=== PATIENT | female | born 1950 | race Caucasian/White ===

== ENCOUNTER → 2016-04-12 | Outpatient (REF) | payer MEDICAID, MEDICARE ==
[~2016-04-12] MED LIST: /ESOM40CA PO; FLUO20CA8 PO; LANS30CA PO; LEVO50TA7 PO; PANT40TA2 PO; RANI15TA PO; VIACCHW PO; VITA-112 PO
[2016-04-12 12:21] LABS: FREE T4 1.11 NG/DL (0.76-1.46)
== END ==
LOC: M SFHCPLAZ 08:25
PROVIDERS: ATTEND Family Medicine
DX: E03.9 Hypothyroidism, unspecified (principal)
CPT/HCPCS: 36415; 84439; 84443; G0463

== ENCOUNTER → 2016-04-18 | Outpatient (CLI) | payer MEDICARE, MEDICAID ==
[2016-04-18 08:18] LABS: MEAN CORPUSCULAR HEMOGLOBIN 28.3 pg (27.0-33.0); MEAN CORPUSCULAR HGB CONC 32.1 g/dl (32.0-36.5); MEAN CORPUSCULAR VOLUME 88.1 fl (80.0-96.0); RED CELL DISTRIBUTION WIDTH 13.2 % (11.5-14.5)
--- NOTE | 2016-04-18 09:07 | REP ---
Chest two views HISTORY: Reflux Comparison: 02/25/2015 The lungs are clear. The heart is normal in size. The pulmonary vasculature is normal in appearance. The bony structure is intact. IMPRESSION: No acute disease. Signed by Gordon Vickers MD 04/18/2016 08:58 A
== END ==
LOC: M LAB 07:54
PROVIDERS: ATTEND Internal Medicine Gastroenterology
DX: K31.84 Gastroparesis (principal); K21.9 Gastro-esophageal reflux disease without esophagitis; R05 Cough

== ENCOUNTER → 2016-05-11 | Outpatient (CLI) | payer MEDICARE, MEDICAID ==
[~2016-05-11] VITALS: Ht 157.5 cm; Wt 59.0 kg
[~2016-05-11] MED LIST changes: +GABA-279 PO; +LEVO75TA4 PO; +LIDOCAINE 2% INJ 100 MG/5 ML SDV (FOR ANES.) As Ordered ONE; +NS 1,000 ML IV SCH; +PROPOFOL 500 MG/50 ML VIAL As Ordered ONE; +PYRI60TA2 PO
--- NOTE | 2016-05-11 10:26 | ROOR ---
Patient Name: Uma Brand Procedure Date: 05/11/2016 10:07 AM Date of : 1950 Age: 66 Room: [facility] Gender: Female Note Status: Finalized Procedure: Colonoscopy Indications: High risk colon cancer surveillance: Personal history of colonic polyps, High risk colon cancer surveillance: Personal history of adenoma (10 mm or greater in size), High risk colon cancer surveillance: Personal history of adenoma with villous component Providers: Riley VALDERRAMA MD Referring MD: Chelsea Valdovinos MD Requesting Provider: Medicines: Monitored Anesthesia Care Complications: No immediate complications. Procedure: Pre-Anesthesia Assessment: - The heart rate, respiratory rate, oxygen saturations, blood pressure, adequacy of pulmonary ventilation, and response to care were monitored throughout the procedure. The Colonoscope was introduced through the anus and advanced to the cecum, identified by appendiceal orifice and ileocecal valve. The colonoscopy was performed without difficulty. The patient tolerated the procedure well. The quality of the bowel preparation was good. Findings: The perianal and digital rectal examinations were normal. (Exam: Complete, Prep: Good or Excellent.) Multiple medium-mouthed diverticula were found in the sigmoid colon. The entire examined colon appeared normal on direct and retroflexion views. Impression: - Moderate diverticulosis in the sigmoid colon. - The entire examined colon is normal on direct and retroflexion views. - (No residual polyp is seen n the cecum) - No specimens collected. Recommendation: - Repeat colonoscopy in 3 years for surveillance based on personal history of previous adenomatous polyps. Riley Valderrama MD Riley VALDERRAMA MD 05/11/2016 10:25:46 AM This report has been signed electronically. Number of Addenda: 0 Note Initiated On: 05/11/2016 10:07 AM Estimated Blood Loss: Estimated blood loss: none.
[2016-05-11 10:45] VITALS: BP 118/80
== END | disposition home or self-care (01) ==
LOC: M OPP 07:48
PROVIDERS: ATTEND Internal Medicine Gastroenterology
DX: Z12.11 Encounter for screening for malignant neoplasm of colon (principal); K57.30 Diverticulosis of large intestine without perforation or abscess without bleeding; Z86.010 Personal history of colon polyps; E03.9 Hypothyroidism, unspecified; R12 Heartburn; M19.90 Unspecified osteoarthritis, unspecified site; M79.7 Fibromyalgia; F41.9 Anxiety disorder, unspecified; K21.9 Gastro-esophageal reflux disease without esophagitis; G70.00 Myasthenia gravis without (acute) exacerbation; M81.0 Age-related osteoporosis without current pathological fracture; Z78.0 Asymptomatic menopausal state; Z79.899 Other long term (current) drug therapy; Z80.42 Family history of malignant neoplasm of prostate; Z80.49 Family history of malignant neoplasm of other genital organs
CPT/HCPCS: 99156; G0105

== ENCOUNTER → 2016-05-24 | Outpatient (CLI) | payer MEDICARE, MEDICAID ==
[~2016-05-24] MED LIST changes: -LIDOCAINE 2% INJ 100 MG/5 ML SDV (FOR ANES.) As Ordered ONE; -NS 1,000 ML IV SCH; -PROPOFOL 500 MG/50 ML VIAL As Ordered ONE
== END ==
LOC: M LAB 07:40
PROVIDERS: ATTEND Family Medicine
DX: E03.9 Hypothyroidism, unspecified (principal)

== ENCOUNTER → 2016-05-28 | Outpatient (REF) | payer MEDICARE, MEDICAID ==
[2016-05-28 14:05] LABS: BASO % 0.3 % (0.0-1.0); EOS % 0.8 % (0.0-3.0); LARGE UNSTAINED CELL # 0.1 K/mm3 (0.0-0.4); LARGE UNSTAINED CELL % 2.6 % (0.0-4.0); LYMPH # 1.5 K/mm3 (1.5-4.5); LYMPH % 24.3 % (24.0-44.0); MEAN CORPUSCULAR HEMOGLOBIN 28.7 pg (27.0-33.0); MEAN CORPUSCULAR HGB CONC 32.5 g/dl (32.0-36.5); MEAN CORPUSCULAR VOLUME 88.2 fl (80.0-96.0); MONO # 0.4 K/mm3 (0.0-0.8); MONO % 6.4 % (0.0-5.0); NEUTROPHILS # 3.6 K/mm3 (1.8-7.7); NEUTROPHILS % 65.6 % (36.0-66.0); PLATELET COUNT, AUTOMATED 254 k/mm3 (150-450); RED CELL DISTRIBUTION WIDTH 12.9 % (11.5-14.5); WHITE BLOOD COUNT 5.5 K/mm3 (4.0-10.0)
[2016-05-28 14:24] LABS: ALBUMIN 3.8 GM/DL (3.2-5.2); ALBUMIN/GLOBULIN RATIO 1.27 (1.00-1.93); ALKALINE PHOSPHATASE 63 U/L (45-117); ALT/SGPT 17 U/L (12-78); ANION GAP 7 MEQ/L (8-16); AST/SGOT 17 U/L (15-37); BILIRUBIN,TOTAL 0.6 MG/DL (0.2-1.0); BLOOD UREA NITROGEN 23 MG/DL (7-18); CALCIUM LEVEL 9.1 MG/DL (8.8-10.2); CARBON DIOXIDE LEVEL 28 MEQ/L (21-32); CHLORIDE LEVEL 106 MEQ/L (98-107); CREATININE FOR GFR 0.73 MG/DL (0.55-1.02); GLOMERULAR FILTRATION RATE > 60.0 (>45); GLUCOSE, FASTING 64 MG/DL (80-110); SODIUM LEVEL 141 MEQ/L (136-145); TOTAL PROTEIN 6.8 GM/DL (6.4-8.2)
== END ==
LOC: M LABNEURO 12:49
PROVIDERS: ATTEND Psychiatry & Neurology Neurology
DX: G70.00 Myasthenia gravis without (acute) exacerbation (principal)

== ENCOUNTER → 2016-06-01 | Outpatient (CLI) | payer MEDICARE, MEDICAID ==
--- NOTE | 2016-06-06 10:58 | DEXA ---
AP SPINE L1 - L4 0.948 -2.0 0.1 LT FEMUR TOTAL 0.729 -2.2 -0.8 RT FEMUR TOTAL 0.754 -2.0 -0.6 TOTAL BODY TOTAL OTHER DUAL FEMUR FRAX* ASSESSMENT Risk factors: None. 10 year probability of fracture Major osteoporotic fracture 11.1 % Hip fracture 2.1 % COMMENTS: There is low bone density of the spine and hips. The density of the spine has increased 2.6% since the initial exam on 2012. The spine density has decreased 0.7% since the most recent exam on 03/11/2014. The density of the left hip has increased 1.4% since the initial exam on 2012. The density of the left hip has decreased 1.2% since the most recent exam on . The density of the right hip has increased 0.5% since the initial exam on 2012. The density of the right hip has decreased 2.1% since the most recent exam on . FOLLOW-UP: Recommendation for the next bone density exam: 2 years. ESTHER
== END ==
LOC: M WHC 09:20
PROVIDERS: ATTEND Nurse Practitioner Family
DX: M81.0 Age-related osteoporosis without current pathological fracture (principal)

== ENCOUNTER → 2016-07-19 | Outpatient (CLI) | payer OTHER, MEDICAID ==
--- NOTE | 2016-07-19 14:46 | REP ---
BILATERAL MAMMOGRAM: Bilateral mammography performed in the MLO and CC projections and compared to multiple prior exams most recent of which is 07/22/2015. Mild fibroglandular tissue bilaterally is unchanged. However, there maybe increasing clustered pleomorphic microcalcifications in the upper outer quadrant of the left breast. I would recommend magnification views to further evaluate. IMPRESSION: ACR 0 incomplete. There are tiny calcifications in the upper outer quadrant of the left breast. Recommend magnification views to further evaluate. BI-RADS/ACR category 0 mammogram, incomplete. Additional imaging and/or prior images are needed before a final assessment can be assigned. This mammogram was interpreted with the aid of an FDA-approved computer-aided detection system. The patient states she/he had a clinical breast exam in 07/2015. The patient letter being requested is M0.
== END ==
LOC: M WHC 12:57
PROVIDERS: ATTEND Family Medicine
DX: Z12.31 Encounter for screening mammogram for malignant neoplasm of breast (principal); R92.8 Other abnormal and inconclusive findings on diagnostic imaging of breast

== ENCOUNTER → 2016-07-25 | Outpatient (CLI) | payer OTHER, MEDICAID ==
--- NOTE | 2016-07-25 08:14 | REP ---
Clinical: Primary osteoarthritis. Technique: AP, lateral, bilateral oblique and sunrise views of the left knee. Findings: Mild medial joint space narrowing is appreciated along with subtle cortical irregularity and osteophyte formation involving the patella with posterior patellar sclerosis and patellofemoral joint space narrowing. No acute fracture dislocation. No obvious effusion. Impression: Mild arthritic degenerative changes primarily involving the patella. Signed by Cabrera Maldonado MD 07/25/2016 08:07 A
== END ==
LOC: M RAD 07:25
PROVIDERS: ATTEND Family Medicine
DX: M17.12 Unilateral primary osteoarthritis, left knee (principal)

== ENCOUNTER → 2016-07-25 | Outpatient (CLI) | payer OTHER, MEDICAID ==
[2016-07-25 08:07] LABS: MAGNESIUM LEVEL 2.3 MG/DL (1.8-2.4)
== END ==
LOC: M LAB 07:22
PROVIDERS: ATTEND Nurse Practitioner Family
DX: R05 Cough (principal); K31.84 Gastroparesis; E55.9 Vitamin D deficiency, unspecified

== ENCOUNTER → 2016-07-26 | Outpatient (CLI) | payer OTHER, MEDICAID ==
--- NOTE | 2016-07-26 11:51 | REP ---
DIGITAL DIAGNOSTIC UNILATERAL LEFT BREAST MAMMOGRAPHY WITH CAD: HISTORY: Screening mammography July 19, 2016 was BIRADS category 0 because of a grouping of tiny calcifications in the upper outer quadrant. Diagnostic imaging was recommended. Comparison is also made with multiple prior studies, the most recent of which is dated July 22, 2015 and the most remote of which is dated August 06, 2011. MAMMOGRAPHIC FINDINGS: Magnified focal spot compression CC, MLO and true ML views of the left breast are obtained today along with a laterally exaggerated magnified CC view. These demonstrate the calcifications in question, which are believed to be visible in retrospect on remote prior studies dating back at least as far as 2011. In addition, there are dispersed similar tiny punctate calcifications throughout the left breast seen on today's magnification views. This is felt to be benign pattern. IMPRESSION: BIRADS category 2 benign left breast mammography. Repeat screening mammography recommended bilaterally in 1 year. BI-RADS/ACR category 2 mammogram. Benign finding(s). Routine annual screening mammography (for women over age 40). This mammogram was interpreted with the aid of an FDA-approved computer-aided detection system. The patient states she/he had a clinical breast exam in July 2015. The patient letter being requested is M1. Signed by Ismael Roldan MD 07/26/2016 03:07 P
== END ==
LOC: M RAD 11:12
PROVIDERS: ATTEND Family Medicine
DX: R92.8 Other abnormal and inconclusive findings on diagnostic imaging of breast (principal)

== ENCOUNTER → 2016-08-22 | Outpatient (CLI) | payer OTHER, MEDICAID ==
[2016-08-22 08:28] LABS: ALBUMIN 3.3 GM/DL (3.2-5.2); ANION GAP 7 MEQ/L (8-16); BLOOD UREA NITROGEN 15 MG/DL (7-18); CARBON DIOXIDE LEVEL 29 MEQ/L (21-32); CHLORIDE LEVEL 108 MEQ/L (98-107); CREATININE FOR GFR 0.75 MG/DL (0.55-1.02); GLOMERULAR FILTRATION RATE > 60.0 (>45); GLUCOSE, FASTING 89 MG/DL (80-110); PHOSPHORUS LEVEL 3.5 MG/DL (2.5-4.9); POTASSIUM SERUM 3.7 MEQ/L (3.5-5.1); SODIUM LEVEL 144 MEQ/L (136-145)
== END ==
LOC: M LAB 07:20
PROVIDERS: ATTEND Family Medicine
DX: M81.0 Age-related osteoporosis without current pathological fracture (principal)

== ENCOUNTER 2016-08-31 07:11 | Outpatient (CLI) | payer OTHER, MEDICAID ==
[~2016-08-31] VITALS: Ht 157.5 cm; Wt 57.7 kg
[2016-08-31] MEDS ORDERED: ZOLEDRONIC ACID 5 MG in APPROPRIATE DILUENT 1 EA IV ONE (08:00)
== END 2016-08-31 08:15 | disposition home or self-care (01) ==
LOC: M INFU 07:11
PROVIDERS: ATTEND Family Medicine
DX: M81.0 Age-related osteoporosis without current pathological fracture (principal); Z78.0 Asymptomatic menopausal state; Z79.899 Other long term (current) drug therapy
CPT/HCPCS: 96365; J3489

== ENCOUNTER → 2017-01-23 | Outpatient (CLI) | payer OTHER, MEDICAID ==
--- NOTE | 2017-01-24 06:30 | REP ---
CHEST X-RAY: CLINICAL: Dyspnea and chest pain. TECHNIQUE: PA and lateral. COMPARISON: 04/18/2016. FINDINGS: Mediastinum and cardiac silhouette are normal. Lung hartman are clear. No consolidation, effusion or pneumothorax. Skeletal structures are intact. IMPRESSION: No acute cardiopulmonary process or focal consolidation. Signed by Cabrera Maldonado MD 01/25/2017 08:51 A
== END ==
LOC: M RAD 10:14
PROVIDERS: ATTEND Family Medicine
DX: R06.00 Dyspnea, unspecified (principal)

== ENCOUNTER → 2017-04-01 | Outpatient (REF) | payer OTHER, MEDICAID ==
[2017-04-01 14:35] LABS: BASO % 0.4 % (0.0-1.0); EOS # 0.1 10^3/uL (0.0-0.50); EOS % 1.6 % (0.0-3.0); HEMOGLOBIN 12.2 g/dl (12.0-16.0); IMMATURE GRANULOCYTE % 0.2 % (0-3.0); LYMPH # 1.4 10^3/uL (1.5-4.5); LYMPH % 30.3 % (24.0-44.0); MEAN CORPUSCULAR HEMOGLOBIN 30.8 pg (27.0-33.0); MEAN CORPUSCULAR VOLUME 93.4 fl (80.0-96.0); MONO # 0.4 10^3/uL (0.0-0.8); MONO % 9.7 % (0.0-5.0); NEUTROPHILS # 2.6 10^3/uL (1.8-7.7); NEUTROPHILS % 57.8 % (36.0-66.0); PLATELET COUNT, AUTOMATED 208 10^3/uL (150-450); RED BLOOD COUNT 3.96 10^6/uL (4.00-5.40); RED CELL DISTRIBUTION WIDTH 12.1 % (11.5-14.5); WHITE BLOOD COUNT 4.5 10^3/uL (4.0-10.0)
[2017-04-01 14:56] LABS: ERYTHROCYTE SEDIMENTATION RATE 6 mm/hr (0-30)
[2017-04-01 15:07] LABS: ALBUMIN 3.6 GM/DL (3.2-5.2); ALBUMIN/GLOBULIN RATIO 1.29 (1.00-1.93); ALKALINE PHOSPHATASE 62 U/L (45-117); ALT/SGPT 31 U/L (12-78); ANION GAP 8 MEQ/L (8-16); AST/SGOT 22 U/L (7-37); BILIRUBIN,TOTAL 0.2 MG/DL (0.2-1.0); BLOOD UREA NITROGEN 17 MG/DL (7-18); CARBON DIOXIDE LEVEL 29 MEQ/L (21-32); CHLORIDE LEVEL 105 MEQ/L (98-107); CREATININE FOR GFR 0.71 MG/DL (0.55-1.30); GLOMERULAR FILTRATION RATE > 60.0 (>45); GLUCOSE, FASTING 80 MG/DL (70-100); POTASSIUM SERUM 3.6 MEQ/L (3.5-5.1); RHEUMATOID FACTOR QUANT < 10.0 IU/ML (0-15.0); SODIUM LEVEL 142 MEQ/L (136-145); TOTAL PROTEIN 6.4 GM/DL (6.4-8.2)
== END ==
LOC: M LABNEURO 13:34
DX: G70.00 Myasthenia gravis without (acute) exacerbation (principal)
CPT/HCPCS: 80053

== ENCOUNTER → 2017-08-19 | Outpatient (CLI) | payer OTHER, MEDICAID | LOC: M WHC 13:05 | DX: Z12.31 Encounter for screening mammogram for malignant neoplasm of breast (principal) | CPT/HCPCS: 77067 ==

== ENCOUNTER → 2017-09-17 | Outpatient (CLI) | payer OTHER, MEDICAID ==
[2017-09-17 08:03] LABS: BASO % 0.2 % (0.0-1.0); EOS % 0.7 % (0.0-3.0); HEMATOCRIT 38.1 % (36.0-47.0); HEMOGLOBIN 12.7 g/dl (12.0-15.5); IMMATURE GRANULOCYTE % 0.4 % (0-3.0); LYMPH # 1.2 10^3/uL (1.5-4.5); LYMPH % 26.3 % (24.0-44.0); MEAN CORPUSCULAR HEMOGLOBIN 31.5 pg (27.0-33.0); MEAN CORPUSCULAR HGB CONC 33.3 g/dl (32.0-36.5); MEAN CORPUSCULAR VOLUME 94.5 fl (80.0-96.0); MONO # 0.4 10^3/uL (0.0-0.8); MONO % 8.8 % (0.0-5.0); NEUTROPHILS # 2.9 10^3/uL (1.8-7.7); NEUTROPHILS % 63.6 % (36.0-66.0); PLATELET COUNT, AUTOMATED 209 10^3/uL (150-450); RED BLOOD COUNT 4.03 10^6/uL (4.00-5.40); RED CELL DISTRIBUTION WIDTH 11.9 % (11.5-14.5); WHITE BLOOD COUNT 4.6 10^3/uL (4.0-10.0)
[2017-09-17 08:28] LABS: ALBUMIN 3.7 GM/DL (3.2-5.2); ALBUMIN/GLOBULIN RATIO 1.19 (1.00-1.93); ALKALINE PHOSPHATASE 63 U/L (45-117); ALT/SGPT 26 U/L (12-78); ANION GAP 9 MEQ/L (8-16); AST/SGOT 20 U/L (7-37); BILIRUBIN,TOTAL 0.5 MG/DL (0.2-1.0); BLOOD UREA NITROGEN 22 MG/DL (7-18); CALCIUM LEVEL 8.6 MG/DL (8.8-10.2); CARBON DIOXIDE LEVEL 30 MEQ/L (21-32); CHLORIDE LEVEL 104 MEQ/L (98-107); CREATININE FOR GFR 0.86 MG/DL (0.55-1.30); GLOMERULAR FILTRATION RATE > 60.0 (>45); GLUCOSE, FASTING 115 MG/DL (70-100); POTASSIUM SERUM 3.5 MEQ/L (3.5-5.1); SODIUM LEVEL 143 MEQ/L (136-145); TOTAL PROTEIN 6.8 GM/DL (6.4-8.2)
== END ==
LOC: M LAB 07:20
DX: G70.00 Myasthenia gravis without (acute) exacerbation (principal)
CPT/HCPCS: 80053

== ENCOUNTER → 2018-05-28 | Outpatient (CLI) | payer MEDICARE, MEDICAID ==
[~2018-05-28] MED LIST changes: -/ESOM40CA PO; +GABA-1171 PO; -GABA-279 PO; +NEXI1CAP3 PO; -PANT40TA2 PO; +PANT40TA3 PO
[2018-05-28 07:22] LABS: ALBUMIN 3.8 GM/DL (3.2-5.2); ALT/SGPT 25 U/L (12-78); BILIRUBIN,TOTAL 0.4 MG/DL (0.2-1.0); BLOOD UREA NITROGEN 24 MG/DL (7-18); CALCIUM LEVEL 8.7 MG/DL (8.8-10.2); CARBON DIOXIDE LEVEL 29 MEQ/L (21-32); CHLORIDE LEVEL 107 MEQ/L (98-107); CHOLESTEROL LEVEL 230 MG/DL (<200); CHOLESTEROL RISK RATIO 2.911 (<5); CREATININE FOR GFR 0.81 MG/DL (0.55-1.30); GLOMERULAR FILTRATION RATE > 60.0 (>45); GLUCOSE, FASTING 85 MG/DL (70-100); HDL CHOLESTEROL 79 MG/DL (>40); LDL CHOLESTEROL 128 MG/DL (<100); NON-HDL-C 151 MG/DL; SODIUM LEVEL 141 MEQ/L (136-145); TOTAL PROTEIN 6.7 GM/DL (6.4-8.2); TRIGLYCERIDES LEVEL 113 MG/DL (<150)
[2018-05-28 09:20] LABS: TOTAL 25(OH) VITAMIN D 50.5 NG/ML (30.0-100.0)
== END ==
LOC: M LAB 06:06
PROVIDERS: ATTEND Family Medicine
DX: Z13.220 Encounter for screening for lipoid disorders (principal); E03.9 Hypothyroidism, unspecified; M81.0 Age-related osteoporosis without current pathological fracture

== ENCOUNTER → 2018-06-16 | Outpatient (CLI) | payer MEDICARE, MEDICAID ==
--- NOTE | 2018-06-20 14:09 | DEXA ---
AP SPINE L1 - L4 0.910 -2.3 -0.7 LT FEMUR TOTAL 0.723 -2.3 -1.0 LT NECK 0.689 -2.5 -1.0 RT FEMUR TOTAL 0.732 -2.2 -0.9 RT NECK 0.693 -2.5 -0.9 TOTAL BODY TOTAL OTHER COMMENTS: There is low bone density of the spine and hips The decreased density of the spine does represent a significant change. The decreased density of the left hip does not represent a significant change. The decreased density of the right hip does represent a significant change. The density of the spine has decreased 1.5% since the initial exam on 03/06/2012. The spine density has decreased 4.0% since the most recent exam on 06/01/2016. The density of the left hip has increased 0.6% since the initial exam on 03/06/2012. The density of the left hip has decreased 0.8% since the most recent exam on 06/01/2016. The density of the right hip has decreased 2.4% since the initial exam on 03/06/2012. The density of the right hip has decreased 2.9% since the most recent exam on 06/01/2016. FOLLOW-UP: Recommendation for the next bone density exam: 2 years. ESTHER
== END ==
LOC: M WHC 14:23
PROVIDERS: ATTEND Family Medicine
DX: M81.0 Age-related osteoporosis without current pathological fracture (principal); M85.89 Other specified disorders of bone density and structure, multiple sites

== ENCOUNTER → 2018-07-07 | Outpatient (REF) | payer MEDICARE, MEDICAID | LOC: M SFHCPLAZ 14:29 | PROVIDERS: ATTEND Family Medicine | DX: M81.0 Age-related osteoporosis without current pathological fracture (principal) | CPT/HCPCS: 36415; 82330; G0463 ==

== ENCOUNTER → 2018-09-05 | Outpatient (CLI) | payer MEDICARE, MEDICAID ==
--- NOTE | 2018-09-05 13:58 | REPMRS ---
Patient History The patient states she has not had a clinical breast exam in over a year. Patient is postmenopausal. Family history of prostate cancer at age 58 in father, endometrial cancer at age 59 in mother. No Hormone Replacement Therapy 3D TOMOSYNTHESIS WAS PERFORMED. [facility] lifetime risk for breast cancer is 5.4%. Digital Woman Screen Mammo: September 05, 2018 - Exam #: [id number] Bilateral CC and MLO view(s) were taken. Technologist: Catherine Domingo, Technologist Prior study comparison: August 19, 2017, bilateral digital woman screen mammo performed at [facility]. July 26, 2016, left breast digital mammo diagnostic unilateral, performed at [facility]. FINDINGS: There are scattered fibroglandular densities. There has been no change in the appearance of the mammogram from the prior studies. There is a mild amount of residual fibroglandular tissue which is fairly symmetric. There is no interval development of dominant mass, architectural distortion, or clustered microcalcification suggestive of malignancy. Assessment: BI-RADS/ACR category 1 mammogram. Negative Mammogram. Recommendation Routine screening mammogram in 1 year (for women over age 40). This mammogram was interpreted with the aid of an FDA-approved computer-aided dectection system. Electronically Signed By: Natan Vail MD 09/05/18 [id number]
== END ==
LOC: M WHC 12:53
PROVIDERS: ATTEND Family Medicine
DX: Z12.31 Encounter for screening mammogram for malignant neoplasm of breast (principal); Z78.0 Asymptomatic menopausal state; Z80.49 Family history of malignant neoplasm of other genital organs

== ENCOUNTER → 2018-09-16 | Outpatient (REF) | payer MEDICARE, MEDICAID ==
[2018-09-24 00:07] LABS: ACETYLCHOLINE RCPTOR BINDING A < 0.03 nmol/L (0.00-0.24); STRIATIONAL ANTIBODIES Negative (Neg:<1:40)
== END ==
LOC: M LABNEURO 14:10
PROVIDERS: ATTEND Psychiatry & Neurology Neurology
DX: G70.00 Myasthenia gravis without (acute) exacerbation (principal)

== ENCOUNTER → 2018-12-24 | Outpatient (CLI) | payer MEDICARE, MEDICAID ==
[2018-12-24 06:44] LABS: BASO % 0.4 % (0.0-1.0); EOS # 0.1 10^3/uL (0.0-0.5); EOS % 1.5 % (0.0-3.0); HEMATOCRIT 41.9 % (36.0-47.0); HEMOGLOBIN 13.9 g/dl (12.0-15.5); LYMPH # 1.9 10^3/uL (1.5-5.0); LYMPH % 34.4 % (24.0-44.0); MEAN CORPUSCULAR HEMOGLOBIN 31.8 pg (27.0-33.0); MEAN CORPUSCULAR HGB CONC 33.2 g/dl (32.0-36.5); MEAN CORPUSCULAR VOLUME 95.9 fl (80.0-96.0); MONO # 0.5 10^3/uL (0.0-0.8); NEUTROPHILS # 2.9 10^3/uL (1.5-8.5); NEUTROPHILS % 53.5 % (36.0-66.0); PLATELET COUNT, AUTOMATED 218 10^3/uL (150-450); RED BLOOD COUNT 4.37 10^6/uL (4.00-5.40); WHITE BLOOD COUNT 5.4 10^3/uL (4.0-10.0)
[2018-12-24 07:22] LABS: FREE T4 1.03 NG/DL (0.76-1.46); THYROID STIMULATING HORMONE 2.65 uIU/ML (0.358-3.740)
== END ==
LOC: M LAB 06:15
PROVIDERS: ATTEND Family Medicine
DX: E03.9 Hypothyroidism, unspecified (principal); R23.2 Flushing

== ENCOUNTER → 2019-02-04 | Outpatient (REF) | payer MEDICARE, MEDICAID ==
[~2019-02-04] MED LIST changes: +FLUO20CA20 PO; -FLUO20CA8 PO
== END ==
LOC: M SFHCPLAZ 12:57
PROVIDERS: ATTEND Family Medicine
DX: Z12.4 Encounter for screening for malignant neoplasm of cervix (principal); N95.2 Postmenopausal atrophic vaginitis
CPT/HCPCS: 87624; G0123

== ENCOUNTER → 2019-08-03 | Outpatient (REF) | payer MEDICARE, MEDICAID ==
[~2019-08-03] MED LIST changes: +D31000TA2 PO; +DICY10CA13 PO; +LEVO50TA5 PO; +MACR100C43 PO; +MULTCAP PO; +OMEP-218 PO; +OMEP40CA97 PO; +PANT40TA29 PO; -PANT40TA3 PO; +VIAC1CHW PO
[2019-08-03 13:38] LABS: COLOR, URINE MANUAL YELLOW (YELLOW)
[2019-08-03 13:39] LABS: BILIRUBIN, URINE MANUAL NEGATIVE (NEGATIVE); BLOOD URINE MANUAL NEGATIVE (NEGATIVE); GLUCOSE, URINE (UA) MANUAL NEGATIVE (NEGATIVE); KETONE, URINE MANUAL NEGATIVE (NEGATIVE); LEUKOCYTE ESTERASE, URINE MAN NEGATIVE (NEGATIVE); NITRITE, URINE MANUAL NEGATIVE (NEGATIVE); PROTEIN, URINE MANUAL NEGATIVE (NEGATIVE); UROBILINOGEN, URINE MANUAL NORMAL (NORMAL)
[2019-08-03 13:53] LABS: BASO % 0.5 % (0.0-1.0); EOS % 0.7 % (0.0-3.0); HEMATOCRIT 41.4 % (36.0-47.0); HEMOGLOBIN 13.5 g/dl (12.0-15.5); LYMPH # 1.5 10^3/uL (1.5-5.0); LYMPH % 35.7 % (24.0-44.0); MEAN CORPUSCULAR HEMOGLOBIN 31.2 pg (27.0-33.0); MEAN CORPUSCULAR HGB CONC 32.6 g/dl (32.0-36.5); MEAN CORPUSCULAR VOLUME 95.6 fl (80.0-96.0); MONO # 0.4 10^3/uL (0.0-0.8); MONO % 10.8 % (0.0-5.0); NEUTROPHILS # 2.1 10^3/uL (1.5-8.5); NEUTROPHILS % 52.1 % (36.0-66.0); PLATELET COUNT, AUTOMATED 179 10^3/uL (150-450); RED BLOOD COUNT 4.33 10^6/uL (4.00-5.40); WHITE BLOOD COUNT 4.1 10^3/uL (4.0-10.0)
[2019-08-03 14:23] LABS: ALBUMIN 3.7 GM/DL (3.2-5.2); ALT/SGPT 27 U/L (12-78); BILIRUBIN,TOTAL 0.6 MG/DL (0.2-1.0); BLOOD UREA NITROGEN 15 MG/DL (7-18); C REACTIVE PROTEIN QUANTITATIV < 0.30 MG/DL (0.00-0.30); CALCIUM LEVEL 9.2 MG/DL (8.8-10.2); CARBON DIOXIDE LEVEL 28 MEQ/L (21-32); CHLORIDE LEVEL 107 MEQ/L (98-107); CREATININE FOR GFR 0.69 MG/DL (0.55-1.30); GLOMERULAR FILTRATION RATE > 60.0 (>45); GLUCOSE, FASTING 85 MG/DL (70-100); POTASSIUM SERUM 4.1 MEQ/L (3.5-5.1); SODIUM LEVEL 140 MEQ/L (136-145); THYROID STIMULATING HORMONE 0.028 uIU/ML (0.358-3.740); TOTAL PROTEIN 6.6 GM/DL (6.4-8.2)
[2019-08-03 14:29] LABS: HEMOGLOBIN A1c 5.3 %
[2019-08-03 14:37] LABS: ERYTHROCYTE SEDIMENTATION RATE 6 mm/hr (0-30)
== END ==
LOC: M SFHCPLAZ 10:17
PROVIDERS: ATTEND Family Medicine
DX: R63.4 Abnormal weight loss (principal); E03.9 Hypothyroidism, unspecified; Z79.899 Other long term (current) drug therapy
CPT/HCPCS: 36415; 80053; 81002; 83036; 84443; 85025; 85652; 86140; G0463

== ENCOUNTER → 2019-08-06 | Outpatient (CLI) | payer MEDICARE, MEDICAID ==
--- NOTE | 2019-08-06 10:20 | REP ---
INTRACRANIAL MRA: 08/06/2019 TECHNIQUE: 3D [id number] imaging of the intracranial vessels were performed. COMPARISON: 12/05/2017 FINDINGS: 2-3 mm proximal right M1 segment aneurysm is re-demonstrated and stable. Right PCOM infundibulum versus small aneurysm is also stable. There are no new aneurysms intracranially. There is no intracranial high-grade stenosis or vessel occlusion. There is no intracranial AVM detected. IMPRESSION: Stable proximal right M1 segment aneurysm. Stable right PCOM aneurysm versus infundibulum. Electronically Signed by Luis E Godfrey DO 08/07/2019 08:41 A
== END ==
LOC: M RAD 06:31
PROVIDERS: ATTEND Student in an Organized Health Care Education/Training Program
DX: I67.1 Cerebral aneurysm, nonruptured (principal)

== ENCOUNTER → 2019-09-14 | Outpatient (CLI) | payer MEDICARE, MEDICAID ==
[~2019-09-14] MED LIST changes: -DICY10CA13 PO; -MACR100C43 PO; -OMEP40CA97 PO
--- NOTE | 2019-10-08 14:23 | REPMRS ---
Patient History The patient states she has not had a clinical breast exam in over a year. Patient is postmenopausal. Family history of prostate cancer at age 58 in father, endometrial cancer at age 59 in mother. No Hormone Replacement Therapy Digital Woman Screen Mammo: September 14, 2019 - Exam #: [id number] Bilateral CC and MLO view(s) were taken. Technologist: Carmelina Canales, Technologist Prior study comparison: September 05, 2018, bilateral digital woman screen mammo performed at [facility]. August 19, 2017, bilateral digital woman screen mammo performed at [facility]. July 19, 2016, digital woman screen mammo performed at [facility]. FINDINGS: The breast tissue is heterogeneously dense. This may lower the sensitivity of mammography. The Volpara volumetric breast density category is: C. There is a moderate amount of heterogeneously dense fibroglandular tissue which is fairly symmetric. There is no interval development of dominant mass, architectural distortion, or grouped microcalcification typical of malignancy. There has been no change in the appearance of the mammogram from the prior studies. 3-D tomosynthesis shows no additional findings. Assessment: BI-RADS/ACR category 1 mammogram. Negative Mammogram. Recommendation Routine screening mammogram of both breasts in 1 year (for women over age 40). This patient's Lifetime Breast Cancer RIsk is estimated at 5.1 %. This mammogram was interpreted with the aid of an FDA-approved computer-aided dectection system. Electronically Signed By: Jass Roldan MD 10/08/19 [id number]
== END ==
LOC: M WHC 14:27
PROVIDERS: ATTEND Family Medicine
DX: Z12.31 Encounter for screening mammogram for malignant neoplasm of breast (principal); Z78.0 Asymptomatic menopausal state; Z80.49 Family history of malignant neoplasm of other genital organs

== ENCOUNTER → 2019-10-03 | Outpatient (CLI) | payer MEDICARE, MEDICAID ==
[2019-11-26 16:21] LABS: FREE T4 0.86 NG/DL (0.76-1.46); THYROID STIMULATING HORMONE 3.37 uIU/ML (0.358-3.740)
== END ==
LOC: M LAB 13:59
PROVIDERS: ATTEND Family Medicine
DX: E03.9 Hypothyroidism, unspecified (principal)

== ENCOUNTER 2019-10-28 10:10 | Inpatient (IN) | payer MEDICARE, MEDICAID ==
[~2019-10-28] VITALS: Ht 157.5 cm; Wt 45.9 kg
[~2019-10-28 10:10] MED LIST changes: -D31000TA2 PO; -LEVO50TA5 PO; -MULTCAP PO; -OMEP-218 PO; -VIAC1CHW PO
[2019-10-28] MEDS ORDERED: OMEP-218 PO (10:17)
[2019-10-28] MEDS ORDERED: ONDANSETRON 4MG/2ML VIAL IV ONE (11:15)
[2019-10-28] MEDS ORDERED: NS 1,000 ML IV ONE (11:15)
[2019-10-28] MEDS ORDERED: KETOROLAC 30 MG/ML 1ML VIAL IV ONE (11:15)
[2019-10-28 11:51] LABS: BASO % 0.2 % (0.0-1.0); HEMOGLOBIN 13.9 g/dl (12.0-15.5); LYMPH # 1.3 10^3/uL (1.5-5.0); LYMPH % 31.3 % (24.0-44.0); MEAN CORPUSCULAR HEMOGLOBIN 31.6 pg (27.0-33.0); MEAN CORPUSCULAR HGB CONC 33.1 g/dl (32.0-36.5); MEAN CORPUSCULAR VOLUME 95.5 fl (80.0-96.0); MONO # 0.4 10^3/uL (0.0-0.8); MONO % 9.1 % (0.0-5.0); NEUTROPHILS # 2.4 10^3/uL (1.5-8.5); NEUTROPHILS % 58.2 % (36.0-66.0); PLATELET COUNT, AUTOMATED 185 10^3/uL (150-450); WHITE BLOOD COUNT 4.2 10^3/uL (4.0-10.0)
[2019-10-28] MEDS ORDERED: GASTROGRAFIN SOLUTION 30ML (Q9963) As Ordered ONE (12:16)
[2019-10-28 12:21] LABS: ALBUMIN 3.7 GM/DL (3.2-5.2); ALT/SGPT 36 U/L (12-78); BILIRUBIN,DIRECT 0.2 MG/DL (0.0-0.2); BILIRUBIN,TOTAL 0.5 MG/DL (0.2-1.0); CK-MB VALUE MASS 1.5 NG/ML (<3.6); CPK CREATINE PHOSPHOKINASE 109 U/L (26-192); LIPASE 113 U/L (73-393); MB/CK RELATIVE INDEX 1.38 (< OR =4); TOTAL PROTEIN 6.3 GM/DL (6.4-8.2); TROPONIN I < 0.02 NG/ML (< 0.10)
[2019-10-28] MEDS: GASTROGRAFIN SOLUTION 30ML PO SCH ×2 (12:54→13:25)
[2019-10-28] MEDS ORDERED: ISOVUE-370 76% 100ML VIAL As Ordered ONE (14:58)
--- NOTE | 2019-10-28 15:59 | REPVR ---
PROCEDURE INFORMATION: Exam: CT Abdomen And Pelvis With Contrast Exam date and time: 10/28/2019 3:30 PM Age: 69 years old Clinical indication: Nausea and other: Diarrhea, loss of appetite; Abdominal pain; Generalized; Additional info: Abd pain with n/d/loss of appetite TECHNIQUE: Imaging protocol: Computed tomography of the abdomen and pelvis with intravenous contrast. Radiation optimization: All CT scans at this facility use at least one of these dose optimization techniques: automated exposure control; mA and/or kV adjustment per patient size (includes targeted exams where dose is matched to clinical indication); or iterative reconstruction. Contrast material: ISOVUE 370; Contrast volume: 100 ml; Contrast route: INTRAVENOUS (IV); COMPARISON: PELVIS NON-OB COMPLETE US 09/30/2014 9:18 AM FINDINGS: Lungs: The visualized lung bases demonstrate minor dependent atelectasis. Mediastinal space: There is a small hiatal hernia. Liver: The liver demonstrates mild intrahepatic biliary ductal dilatation. It appears otherwise unremarkable. Gallbladder and bile ducts: Cholecystectomy clips are present. The common bile duct is dilated up to 12 mm in caliber. There may be a 5 x 7 x 8 mm soft tissue density focus within it distally (images 201:47, 202:29). Pancreas: Normal. No ductal dilation. Spleen: A small splenule is present. The spleen itself appears unremarkable. Adrenals: Normal. No mass. Kidneys and ureters: The right kidney contains a 2.4 cm cyst, which does not require follow-up. It appears otherwise unremarkable. The left kidney appears unremarkable. Stomach and bowel: The small bowel is not obstructed. There is a loop of small bowel in the left pelvis which appears thick walled (in region of images 201:83 and 202:27). There is minor sigmoid colonic diverticulosis without evidence for diverticulitis. Appendix: The appendix is not identified, but there are no inflammatory changes in its expected region. Intraperitoneal space: No free air or significant free fluid. Vasculature: The abdominal aorta is nonaneurysmal. The left renal vein is noted to be retroaortic. Lymph nodes: Unremarkable. No enlarged lymph nodes. Bladder: Grossly unremarkable. Reproductive: Unremarkable as visualized. Bones/joints: Degenerative changes involve the spine and hips. Soft tissues: Unremarkable. IMPRESSION: 1. Thick-walled appearance to a loop of small bowel in the left pelvis without obstruction. This raises the possibility of a nonspecific enteritis, with other underlying pathology not excluded. Recommend further evaluation with small bowel follow-through (after contrast administered for this exam has cleared). 2. Status post cholecystectomy with dilatation of the common bile duct, which is often associated, but also with mild intrahepatic biliary ductal dilatation, which is somewhat atypical, and with a potential small soft tissue density focus within it distally. Recommend further evaluation with MRI/MRCP. 3. Minor sigmoid colonic diverticulosis without evidence for diverticulitis. 4. Small hiatal hernia. Electronically signed by: Paulo Montanez On 10/28/2019 15:59:33 PM
[2019-10-28] MEDS ORDERED: VIAC1CHW PO (16:43)
[2019-10-28] MEDS ORDERED: LEVO50TA5 PO (16:43)
[2019-10-28] MEDS ORDERED: D31000TA2 PO (16:43)
[2019-10-28] MEDS ORDERED: ONDANSETRON 4MG/2ML VIAL IV PRN (17:45)
[2019-10-28] MEDS ORDERED: PANTOPRAZOLE 40MG VIAL (C9113 PER 1) IV ONE (17:45)
--- NOTE | 2019-10-28 18:32 | HPEPDOC ---
General Date of Admission 10/28/19 Date of Service: Oct 28, 2019 Chief Complaint The patient is a 69-year-old female admitted with a reason for visit of R Flank Pain. Source: Patient History of Present Illness 69 year old female with PMH of hypothyroidism, myasthenia gravis, s/p Cholecystectomy presented to ED with Chronic right flank pain/ RUQ pain with abnormal stools yesterday. She has this abdominal pain chronic persistent going on for months extending from the top of her large appendectomy scar back wards and upwards towards the flank and right upper quadrant about 4/10 in intensity worsens when she bends forward or sits up bending forward which he has discussed with her PMD. More recently a 6 days ago she had an episode of watery diarrhea for a whole night for which she took imodium and that resolved though the pain remained unchanged but not any worse. Her appetite has been poor this past week and she has noticed that she is getting intolerant to many foods int he recent months. She also has been loosing weight for which she is following with PMD.Yesterday she had an explosive bowel movement with light colored fatty stool which was floating in toilet. So she came to the ED for evaluation. Work up in ED showed that her Labs were within normal limits. CT abdomen showed 1. Thick-walled appearance to a loop of small bowel in the left pelvis without obstruction. This raises the possibility of a nonspecific enteritis, with other underlying pathology not excluded. Recommend further evaluation with small bowel follow-through (after contrast administered for this exam has cleared). 2. Status post cholecystectomy with dilatation of the common bile duct, which is often associated, but also with mild intrahepatic biliary ductal dilatation, which is somewhat atypical, and with a potential small soft tissue density focus within it distally. Recommend further evaluation with MRI/MRCP. 3. Minor sigmoid colonic diverticulosis without evidence for diverticulitis. 4. Small hiatal hernia. Patient admitted for possible CBD obstruction. Will order MRCP. Home Medications Scheduled Calcium Carb/Vitamin D3/Vit K1 (Viactiv 650 mg-12.5 Mcg Chew) 1 Each Tab.chew, 1 CHEW PO DAILY, (Reported) Cholecalciferol (Vitamin D3) (Vitamin D3) 1,000 Unit Tablet, 1,000 UNITS PO DAILY, (Reported) Gabapentin (Gabapentin) 100 Mg Capsule, 100 MG PO BID Levothyroxine Sodium (Levothyroxine Sodium) 50 Mcg Tablet, 50 MCG PO DAILY, (Reported) Omeprazole (Omeprazole) 20 Mg Capsule.dr, 20 MG PO DAILY, (Reported) Pyridostigmine [place] (Pyridostigmine [place]) 60 Mg Tab, 30 MG PO QID, (Reported) TAKES AT 0800/1200/1600/1999 Allergies Coded Allergies: No Known Allergies (Unverified , 10/28/19) Past Medical History Medical History Ongoing Weight loss Chronic Abdominal pain GERD/ Hiatal hernia Hypothyroid Myasthenia gravis. FIBROMYALGIA OSTEOPOROSIS - OSTEOARTHRITIS ANXIETY DYSPHAGIA - EGD (03/21/15 - DR. VALDERRAMA); CHRONIC PERSISTALSIS PROBLEM h/o several dilatations. INSOMNIA CYSTOCELE CHRONIC HEADACHES GASTROPARESIS RIGHT ICA ANEURYSM - DR. EPSTEIN Surgical History APPENDECTOMY 1963 D&C 1973 D&C 1979 TUBAL LIGATION 1984 TOTAL DENTAL EXTRACTION 1993 CHOLECYSTECTOMY - LAPAROSCOPIC 2001 COLONOSCOPY 2008 EGD AND ESOPHAGEAL DILATION - DR. VALDERRAMA 12/08/12 FINE NEEDLE BIOPSY LEFT THYROID NODULE - DR. DARDEN 12/03/13 ERCP, PAPILLOTOMY AND BALLOON SWEEP 07/2006 LEFT FT. SURGERY 08/2014 EGD- GASTRIC POLYP SHOWING NONSPECIFIC CHRONIC INFLAMMATION, ESOPHAGEAL DILATION FOR DYSPHAGIA 01/2015 EGD- MULTIPLE KNOWN FUNDIC GLAND POLYPS, SMALL HIATUS HERNIA OTHERWISE NL STOMACH 03/2015 COLONOSCOPY- POST-POLYPECTOMY SCAR, DIVERTICULOSIS, SMALL INTERNAL HEMORRHOIDS, ADENOMATOUS POLYP, REPEAT 03/2016 CHIELECTOMY/HARDWARE REVISION-DR. MONTELONGO 11/02/2015 COLONOSCOPY - DR. VALDERRAMA 05/11/2016 Family History FATHER: 60 YRS, PROSTATE CANCER WITH METS TO BONE, [place] - 55YO; MULTIPLE HEART ATTACKS MOTHER: 58 YRS, FIBROIDS - UNSURE IF UTERINE CA OR BLADDER CANCER Social History * Smoker: former Smoker Alcohol: Denies Drugs: denies A-FIB/CHADSVASC A-FIB History Current/History of A-Fib/PAF?: No Review of Systems Constitutional: Reports: Weight Loss; Denies: Chills, Fever, Night Sweats Eyes: Denies: Pain, Vision change ENT: Reports: Head Aches Skin: Denies: Rash, Lesions, Breakdown Pulmonary: Denies: Dyspnea, Cough Cardiovascular: Denies: Chest Pain, Palpitations, Orthopnea, Paroxysmal Noc. Dyspnea, Lt Headedness Gastrointestinal: Reports: Abdominal Pain, Diarrhea Genitourinary: Denies: Dysuria, Frequency, Incontinence, Retention Musculoskeletal: Denies: Neck Pain, Back Pain, Joint Pain, Muscle Pain, Spasms Neurological: Denies: Weakness, Numbness, Change in speech, Confusion Psych: Reports: Anxiety Physical Examination General Exam: Positive: Alert, Cooperative, No Acute Distress Eye Exam: Positive: PERRLA, Conjunctiva & lids normal, EOMI; Negative: Sclera icteric ENT Exam: Positive: Atraumatic, Mucous membr. moist/pink, Pharynx Normal Neck Exam: Positive: Supple; Negative: JVD, thyromegaly Chest Exam: Positive: Clear to auscultation, Normal air movement Heart Exam: Positive: Rate Normal, Regular Rhythm, Normal S1, Normal S2; Negative: Murmurs, Rubs Abdomen Exam: Positive: Normal bowel sounds, Soft, Tenderness (in the right l ower quadrant and right flank); Negative: Hepatospenomegaly Extremity Exam: Negative: Clubbing, Cyanosis, Edema Skin Exam: Positive: Nl turgor and temperature; Negative: Breakdown, Lesion Neuro Exam: Positive: Normal Gait, Normal Speech, Strength at 5/5 X4 ext Vital Signs Vital Signs Date Time Temp Pulse Resp B/P (MAP) Pulse Ox O2 Delivery O2 Flow Rate FiO2 10/28/19 14:19 98.4 66 17 113/69 (84) 100 Room Air Laboratory Data Labs 24H Laboratory Tests 2 10/28/19 11:25: Immature Granulocyte % (Auto) 0.2, Neutrophils (%) (Auto) 58.2, Lymphocytes (%) (Auto) 31.3, Monocytes (%) (Auto) 9.1H, Eosinophils (%) (Auto) 1.0, Basophils (%) (Auto) 0.2, Neutrophils # (Auto) 2.4, Lymphocytes # (Auto) 1.3L, Monocytes # (Auto) 0.4, Eosinophils # (Auto) 0.0, Basophils # (Auto) 0.0, Nucleated Red Blood Cells % (auto) 0.0, Total Bilirubin 0.5, Direct Bilirubin 0.2, Aspartate Amino Transf (AST/SGOT) 24, Alanine Aminotransferase (ALT/SGPT) 36, Alkaline Phosphatase 61, Total Creatine Kinase 109, Creatine Kinase MB 1.5, Creatine Kinase MB Relative Index 1.38, Troponin I < 0.02, Total Protein 6.3L, Albumin 3.7, Albumin/Globulin Ratio 1.4, Lipase 113 10/28/19 12:55: Urine Color YELLOW, Urine Appearance CLEAR, Urine pH 7.0, Urine Specific [place] 1.011, Urine Protein NEGATIVE, Urine Glucose (UA) NEGATIVE, Urine Ketones TRACEH, Urine Blood NEGATIVE, Urine Nitrite NEGATIVE, Urine Bilirubin NEGATIVE, Urine Urobilinogen 0.2, Urine Leukocyte Esterase 3+H, Urine WBC (Auto) 24H, Urine RBC (Auto) 1, Urine Hyaline Casts (Auto) 0, Urine Bacteria (Auto) NEGATIVE, Urine Squamous Epithelial Cells 0, Urine Mucus (Auto) SMALL, Urine Sperm (Auto) CBC/BMP Laboratory Tests 10/28/19 11:25 Microbiology Microbiology 10/28/19 Urine Culture, Received Pending Assessment/Plan 69 year old female with PMH of hypothyroidism, myasthenia gravis, s/p Cholecy stectomy, s/p appendectomy, presented to ED with Chronic right flank pain/ RUQ pain with abnormal stools yesterday. She has this abdominal pain chronic persistent going on for months extending from the top of her large appendectomy scar back wards and upwards towards the flank and right upper quadrant about 4/10 in intensity worsens when she bends forward or sits up bending forward which he has discussed with her PMD. More recently a 6 days ago she had an episode of watery diarrhea for a whole night for which she took imodium and that resolved though the pain remained unchanged but not any worse. Her appetite has been poor this past week and she has noticed that she is getting intolerant to many foods in the last 5 years. She also has been loosing weight for which she is following with PMD.Yesterday she had an explosive bowel movement with light colored fatty stool which was floating in toilet. So she came to the ED for evaluation. Work up in ED showed that her Labs were within normal limits. CT abdomen showed 1. Thick-walled appearance to a loop of small bowel in the left pelvis without obstruction. This raises the possibility of a nonspecific enteritis, with other underlying pathology not excluded. Recommend further evaluation with small bowel follow-through (after contrast administered for this exam has cleared). 2. Status post cholecystectomy with dilatation of the common bile duct, which is often associated, but also with mild intrahepatic biliary ductal dilatation, which is somewhat atypical, and with a potential small soft tissue density focus within it distally. Recommend further evaluation with MRI/MRCP. 3. Minor sigmoid colonic diverticulosis without evidence for diverticulitis. 4. Small hiatal hernia. Patient admitted for possible CBD obstruction. Will order MRCP. Rule out CBD obstruction will get MRCP Patient did have an ERCP and Papillotomy done several years ago. Chronic abdominal pain I feel this is more musculoskeletal vs nerve entrapment related to the appendectomy scar. However will evaluate for CBD obstruction. will give toradol for now may try gabapentin. Changing bowel habits/ Weight loss Had several Colonoscopies and Endoscopies over the years She does have gastroparesis , also had several esophageal dilatations. Has h/o gastric polyps and chronic gastric inflammation. If no abnormality in MRCP will need follow up with GI as outpatient. Under weight BMI of 18.5 Myasthenia Gravis continue home meds GERD/Hiatal hernia PPI Hypothyroid continue synthroid Plan / VTE VTE Prophylaxis Ordered?: Yes SYLVAIN DE LEÓN MD Oct 28, 2019 16:46
[2019-10-28 20:01] VITALS: BP 115/70
[2019-10-28] MEDS ORDERED: PILL CUTTER 1 EACH XX PRN (20:15)
[2019-10-28] MEDS ORDERED: GABAPENTIN 100 MG CAP PO SCH (21:00)
--- NOTE | 2019-10-28 21:09 | REPVR ---
PROCEDURE INFORMATION: Exam: MR Abdomen Without Contrast, MRCP Exam date and time: 10/28/2019 6:41 PM Age: 69 years old Clinical indication: Abdominal pain; Acute; Patient HX: Ruq pain; Additional info: Ruq pain with dilated cbd and intrahepatic biliary dil TECHNIQUE: Imaging protocol: MR of the abdomen without contrast. Exam focused on the bile ducts and pancreatic ducts. 3D MRCP images were acquired and processed without radiologist supervision. 3D rendering (Not supervised by radiologist): MIP and/or 3D reconstructed images were created by the technologist. COMPARISON: CT ABD/PEL W/IV ORAL CONTRAS 10/28/2019 3:26 PM FINDINGS: Limitations: This examination is MRCP only. There is a 2.5 cm right renal cyst. This appears to be a simple cyst on limited view. Liver: No mass. Gallbladder and bile ducts: Intrahepatic bile ducts are mildly dilated.MRCP demonstrates the common bile duct to be mildly dilated, 8 mm. There is no filling defect to indicate choledochal calculus. The distal 17 mm of the CBD appears moderately narrowed. Pancreas: Unremarkable. No ductal dilation. Stomach and bowel: There is a fluid filled structure which is consistent with a duodenal diverticulum. Intraperitoneal space: No fluid collection. IMPRESSION: Mild intrahepatic dilatation and common bile duct dilation, 8 mm. No evidence of choledochal calculus. The distal 17 mm of the duct is narrowed. This could be due to stricture. The possibility of extrinsic compression cannot be excluded, particularly as there are no MRI images to evaluate the surrounding structures. No obstructive mass can be identified on the prior CT. Electronically signed by: Jamal Stout On 10/28/2019 21:08:42 PM
[2019-10-28] MEDS: KETOROLAC 30 MG/ML 1ML VIAL IV SCH (21:39)
[2019-10-28] MEDS: PYRIDOSTIGMINE 60 MG TAB PO SCH (21:39)
[2019-10-29] MEDS: KETOROLAC 30 MG/ML 1ML VIAL IV SCH ×2 (03:35→12:42)
[2019-10-29 06:00] VITALS: BP 93/56
[2019-10-29] MEDS ORDERED: LEVOTHYROXINE 50MCG TABLET (0.05MG) PO SCH (06:00)
[2019-10-29] MEDS ORDERED: ENOXAPARIN 40MG/0.4ML SYRINGE (J1650 PER 10MG) SC SCH (09:00)
[2019-10-29] MEDS: PYRIDOSTIGMINE 60 MG TAB PO SCH ×3 (09:46→15:01)
[2019-10-29 14:00] VITALS: BP_SYST 114; BP_SYST 86; BP_DIAS 48; BP_DIAS 64
[2019-10-29] MEDS ORDERED: ACETAMINOPHEN 500 MG TAB PO PRN (14:45)
--- NOTE | 2019-10-29 14:50 | IPNPDOC ---
Text Note Date of Service The patient was seen on 10/29/19. NOTE Subjective: COntinues to have abdominal pain unchanged. She is tolerated liquid diet. No fever or chills, no chest pain or sob, She reports that she has lost 25 Lbs int he past 6 months. Physical Exam Vitals: As below General Exam: Positive: Alert, Cooperative, No Acute Distress Eye Exam: Positive: PERRLA, Conjunctiva & lids normal, EOMI; Negative: Sclera icteric ENT Exam: Positive: Atraumatic, Mucous membr. moist/pink, Pharynx Normal, Bitemporal wasting. Neck Exam: Positive: Supple; Negative: JVD, thyromegaly Chest Exam: Positive: Clear to auscultation, Normal air movement Heart Exam: Positive: Rate Normal, Regular Rhythm, Normal S1, Normal S2; Negative: Murmurs, Rubs Abdomen Exam: Positive: Normal bowel sounds, Soft, Tenderness (in the right lower quadrant and right flank); Negative: Hepatospenomegaly Extremity Exam: Negative: Clubbing, Cyanosis, Edema Skin Exam: Positive: Nl turgor and temperature; Negative: Breakdown, Lesion Neuro Exam: Positive: Normal Gait, Normal Speech, Strength at 5/5 X4 ext Labs and radiology : reviewed. Assessment and Plan: 69 year old female with PMH of hypothyroidism, myasthenia gravis, s/p Cholecystectomy, s/p appendectomy, presented to ED with Chronic right flank pain/ RUQ pain with abnormal stools yesterday. She has this abdominal pain chronic persistent going on for months extending from the top of her large appendectomy scar back wards and upwards towards the flank and right upper quadrant about 4/10 in intensity worsens when she bends forward or sits up bending forward which he has discussed with her PMD. More recently a 6 days ago she had an episode of watery diarrhea for a whole night for which she took imodium and that resolved though the pain remained unchanged but not any worse. Her appetite has been poor this past week and she has noticed that she is getting intolerant to many foods in the last 5 years. She also has been loosing weight for which she is following with PMD.Yesterday she had an explosive bowel movement with light colored fatty stool which was floating in toilet. So she came to the ED for evaluation. Work up in ED showed that her Labs were within normal limits. CT abdomen showed 1. Thick-walled appearance to a loop of small bowel in the left pelvis without obstruction. This raises the possibility of a nonspecific enteritis, with other underlying pathology not excluded. Recommend further evaluation with small bowel follow-through (after contrast administered for this exam has cleared). 2. Status post cholecystectomy with dilatation of the common bile duct, which is often associated, but also with mild intrahepatic biliary ductal dilatation, which is somewhat atypical, and with a potential small soft tissue density focus within it distally. Recommend further evaluation with MRI/MRCP. 3. Minor sigmoid colonic diverticulosis without evidence for diverticulitis. 4. Small hiatal hernia. Patient admitted for possible CBD obstruction. Rule out CBD obstruction MRCP ? stricture in the distal CBD consulted Dr Bella. Patient did have an ERCP and Papillotomy done several years ago. Chronic abdominal pain I feel this is more musculoskeletal vs nerve entrapment related to the appendectomy scar. However will evaluate for CBD obstruction. tylenol and gabapentin. Changing bowel habits/ Weight loss Had several Colonoscopies and Endoscopies over the years She does have gastroparesis , also had several esophageal dilatations. Has h/o gastric polyps and chronic gastric inflammation. Dr Bella Under weight BMI of 18.5 Lost 25 lbs in past 6 months. Myasthenia Gravis continue home meds GERD/Hiatal hernia PPI Hypothyroid continue synthroid VS,Fishbone, I+O VS, Fishbone, I+O Vital Signs Date Time Temp Pulse Resp B/P (MAP) Pulse Ox O2 Delivery O2 Flow Rate FiO2 10/29/19 06:00 98.4 66 16 93/56 (68) 97 Room Air I&O- Last 24 Hours up to 6 AM 10/29/19 06:00 Intake Total 1310 ml Output Total 300 ml Balance 1010 ml SYLVAIN DE LEÓN MD Oct 29, 2019 14:47
[2019-10-29] MEDS: GABAPENTIN 100 MG CAP PO SCH ×2 (15:01→16:00)
[2019-10-29] MEDS ORDERED: GABA-1171 PO (18:42)
[2019-10-29] MEDS ORDERED: PANTOPRAZOLE 40MG VIAL (C9113 PER 1) IV SCH (21:00)
--- NOTE | 2019-10-30 13:02 | DS.PDOC ---
Discharge Summary General Date of Admission Oct 28, 2019 at 17:44 Date of Discharge 10/29/19 Discharge Summary PROCEDURES PERFORMED DURING STAY: [None]. DISCHARGE DIAGNOSES: CBD obstruction Ruled out Chronic abdominal pain ? nerve entrapment in appendectomy scar Vs musculoskeletal Fibromyalgia Underweight Weight loss being work up as outpatient. SECONDARY DIAGNOSIS: GERD/ Hiatal hernia Hypothyroid Myasthenia gravis. FIBROMYALGIA OSTEOPOROSIS - OSTEOARTHRITIS ANXIETY DYSPHAGIA - EGD (03/21/15 - DR. OLSEN); CHRONIC PERISTALSIS PROBLEM h/o several dilatations. INSOMNIA CYSTOCELE CHRONIC HEADACHES GASTROPARESIS RIGHT ICA ANEURYSM COMPLICATIONS/CHIEF COMPLAINT: R Flank Pain. HOSPITAL COURSE: 69 year old female with PMH of hypothyroidism, myasthenia gravis, s/p Cholecystectomy, s/p appendectomy, presented to ED with Chronic right flank pain/ RUQ pain with abnormal stools yesterday. She has this abdominal pain chronic persistent going on for months extending from the top of her large appendectomy scar back wards and upwards towards the flank and right upper quadrant about 4/10 in intensity worsens when she bends forward or sits up bending forward which he has discussed with her PMD. More recently a 6 days ago she had an episode of watery diarrhea for a whole night for which she took imodium and that resolved though the pain remained unchanged but not any worse. Her appetite has been poor this past week and she has noticed that she is getting intolerant to many foods in the last 5 years. She also has been loosing weight for which she is following with PMD.Yesterday she had an explosive bowel movement with light colored fatty stool which was floating in toilet. So she came to the ED for evaluation. Work up in ED showed that her Labs were within normal limits. CT abdomen showed 1. Thick-walled appearance to a loop of small bowel in the left pelvis without obstruction. This raises the possibility of a nonspecific enteritis, with other underlying pathology not excluded. Recommend further evaluation with small bowel follow-through (after contrast administered for this exam has cleared). 2. Status post cholecystectomy with dilatation of the common bile duct, which is often associated, but also with mild intrahepatic biliary ductal dilatation, which is somewhat atypical, and with a potential small soft tissue density focus within it distally. Recommend further evaluation with MRI/MRCP. 3. Minor sigmoid colonic diverticulosis without evidence for diverticulitis. 4. Small hiatal hernia. Patient admitted for possible CBD obstruction. Rule out CBD obstruction MRCP ? stricture in the distal CBD consulted Dr Bella. Patient did have an ERCP and Papillotomy done several years ago. Chronic abdominal pain I feel this is more musculoskeletal vs nerve entrapment related to the appendectomy scar. However will evaluate for CBD obstruction. tylenol and gabapentin. Changing bowel habits/ Weight loss Had several Colonoscopies and Endoscopies over the years She does have gastroparesis , also had several esophageal dilatations. Has h/o gastric polyps and chronic gastric inflammation. Dr Bella Under weight BMI of 18.5 Lost 25 lbs in past 6 months. Myasthenia Gravis continue home meds GERD/Hiatal hernia PPI Hypothyroid continue Synthroid DISCHARGE MEDICATIONS: Please see below. ALLERGIES: Please see below. PHYSICAL EXAMINATION ON DISCHARGE: VITAL SIGNS: Please see below. General Exam: Positive: Alert, Cooperative, No Acute Distress Eye Exam: Positive: PERRLA, Conjunctiva & lids normal, EOMI; Negative: Sclera icteric ENT Exam: Positive: Atraumatic, Mucous membr. moist/pink, Pharynx Normal, Bitemporal wasting. Neck Exam: Positive: Supple; Negative: JVD, thyromegaly Chest Exam: Positive: Clear to auscultation, Normal air movement Heart Exam: Positive: Rate Normal, Regular Rhythm, Normal S1, Normal S2; Negative: Murmurs, Rubs Abdomen Exam: Positive: Normal bowel sounds, Soft, Tenderness (in the right lower quadrant and right flank); Negative: Hepatosplenomegaly Extremity Exam: Negative: Clubbing, Cyanosis, Edema Skin Exam: Positive: Nl turgor and temperature; Negative: Breakdown, Lesion Neuro Exam: Positive: Normal Gait, Normal Speech, Strength at 5/5 X4 ext LABORATORY DATA: Please see below. ACTIVITY: [As tolerated]. DIET: As tolerated DISPOSITION: 01 Home, Self-Care. DISCHARGE INSTRUCTIONS: Follow up with PMD in 2 weeks Follow up with Dr Olsen in 2 to 3 weeks DISCHARGE CONDITION: [Stable]. TIME SPENT ON DISCHARGE: 35 minutes. Vital Signs/I&Os Vital Signs Date Time Temp Pulse Resp B/P (MAP) Pulse Ox O2 Delivery O2 Flow Rate FiO2 10/29/19 14:00 97.9 85 16 86/48 (61) 98 Room Air I&O- Last 24 Hours up to 6 AM 10/30/19 05:59 Intake Total 1000 ml Output Total 300 ml Balance 700 ml Microbiology Microbiology 10/28/19 Urine Culture - Final, Complete Discharge Medications Scheduled Calcium Carb/Vitamin D3/Vit K1 (Viactiv 650 mg-12.5 Mcg Chew) 1 Each Tab.chew, 1 CHEW PO DAILY, (Reported) Cholecalciferol (Vitamin D3) (Vitamin D3) 1,000 Unit Tablet, 1,000 UNITS PO DAILY, (Reported) Gabapentin (Gabapentin) 100 Mg Capsule, 100 MG PO BID Levothyroxine Sodium (Levothyroxine Sodium) 50 Mcg Tablet, 50 MCG PO DAILY, (Reported) Omeprazole (Omeprazole) 20 Mg Capsule.dr, 20 MG PO DAILY, (Reported) Pyridostigmine [place] (Pyridostigmine [place]) 60 Mg Tab, 30 MG PO QID, (Reported) TAKES AT 0800/1200/1600/1999 Allergies Coded Allergies: No Known Allergies (Unverified , 10/28/19) SYLVAIN DE LEÓN MD Oct 30, 2019 13:02
--- NOTE | 2019-11-03 20:41 | ECGEPIP ---
[facility] - ED Test Date: 2019-10-28 Pat Name: SAVANANH CARBAJAL Department: Room: - Gender: Female Medical Insurance Verifier: nan : 1950 Requested By: COLLIN MARTINEZ Order Number: [id number] Reading MD: Kevin Martines Measurements Intervals [place] Rate: 67 P: 54 FL: 176 QRS: 23 QRSD: 85 T: 29 QT: 411 QTc: 436 Interpretive Statements [employer] RBBB SEE SCANNED DOWNTIME REPORT
[2019-11-27] MEDS ORDERED: MULTCAP PO (08:48)
== END 2019-10-29 19:31 | disposition home or self-care (01) | DRG 74 ==
LOC: M ED 10:10 → M ED INP 17:44 → ENRESERV 19:08 → M MSPAV 20:01
PROVIDERS: ADMIT Internal Medicine Nephrology; ATTEND Internal Medicine Nephrology
DX: G58.9 Mononeuropathy, unspecified (principal); Z68.1 Body mass index [BMI] 19.9 or less, adult; K31.84 Gastroparesis; R63.4 Abnormal weight loss; R10.9 Unspecified abdominal pain; K21.9 Gastro-esophageal reflux disease without esophagitis; F41.9 Anxiety disorder, unspecified; M19.90 Unspecified osteoarthritis, unspecified site; M79.7 Fibromyalgia; K44.9 Diaphragmatic hernia without obstruction or gangrene; E03.9 Hypothyroidism, unspecified; G70.00 Myasthenia gravis without (acute) exacerbation; R13.10 Dysphagia, unspecified; G47.00 Insomnia, unspecified; R51 Headache; Z79.899 Other long term (current) drug therapy

== ENCOUNTER → 2019-11-26 | Outpatient (CLI) | payer MEDICARE, MEDICAID ==
[~2019-11-26] MED LIST changes: +D31000TA2 PO; +LEVO50TA5 PO; +MULTCAP PO; +OMEP-218 PO; +VIAC1CHW PO
== END ==
LOC: M LABSMTC 11:21
PROVIDERS: ATTEND Anesthesiology
DX: Z01.812 Encounter for preprocedural laboratory examination (principal); Z20.828 Contact with and (suspected) exposure to other viral communicable diseases

== ENCOUNTER 2019-12-01 12:26 | Day surgery (SDC) | payer MEDICARE, MEDICAID ==
[~2019-12-01] VITALS: Ht 157.5 cm; Wt 50.8 kg
[~2019-12-01 12:26] MED LIST changes: +LIDOCAINE 2% 100MG/5ML SDV (FOR ANES.) As Ordered ONE; +NS 1,000 ML IV ONE; +fentaNYL 100 MCG/2 ML INJECTION (J3010) As Ordered ONE; +propofoL 200 MG/20 ML VIAL As Ordered ONE
--- NOTE | 2019-12-01 15:10 | ROOR ---
Patient Name: Uma Brand Procedure Date: 12/01/2019 2:52 PM Date of : 1950 Age: 69 Room: [facility] Gender: Female Note Status: Finalized Procedure: Upper GI endoscopy Indications: Dysphagia Providers: Riley VALDERRAMA MD Referring MD: Chelsea Valdovinos MD Requesting Provider: Medicines: Monitored Anesthesia Care Complications: No immediate complications. Procedure: Pre-Anesthesia Assessment: - The heart rate, respiratory rate, oxygen saturations, blood pressure, adequacy of pulmonary ventilation, and response to care were monitored throughout the procedure. The Endoscope was introduced through the mouth, and advanced to the second part of duodenum. The upper GI endoscopy was accomplished without difficulty. The patient tolerated the procedure well. Findings: The esophagus was normal. The stomach was normal. The examined duodenum was normal. Impression: - Normal esophagus. - Normal stomach with a small Hiatal hernia. - Normal examined duodenum. - No specimens collected. Recommendation: - Observe patient's clinical course. Riley Valderrama MD Riley VALDERRAMA MD 12/01/2019 3:09:48 PM Electronically signed by Riley VALDERRAMA MD Number of Addenda: 0 Note Initiated On: 12/01/2019 2:52 PM Estimated Blood Loss: Estimated blood loss: none.
[2019-12-01] MEDS ORDERED: ePHEDrine SULFATE 25 MG/5 ML(5MG/ML) SYRINGE As Ordered ONE (15:25)
--- NOTE | 2019-12-01 15:36 | ROOR ---
Patient Name: Uma Brand Procedure Date: 12/01/2019 2:53 PM Date of : 1950 Age: 69 Room: [facility] Gender: Female Note Status: Finalized Procedure: Colonoscopy Indications: High risk colon cancer surveillance: Personal history of colonic polyps Providers: Riley VALDERRAMA MD Referring MD: Chelsea Valdovinos MD Requesting Provider: Medicines: Monitored Anesthesia Care Complications: No immediate complications. Procedure: Pre-Anesthesia Assessment: - The heart rate, respiratory rate, oxygen saturations, blood pressure, adequacy of pulmonary ventilation, and response to care were monitored throughout the procedure. The Colonoscope was introduced through the anus and advanced to the terminal ileum, with identification of the appendiceal orifice and IC valve. The colonoscopy was performed without difficulty. The patient tolerated the procedure well. The quality of the bowel preparation was good. Findings: The perianal and digital rectal examinations were normal. A 3 mm polyp was found in the appendiceal orifice. The polyp was sessile. The polyp was removed with a jumbo cold forceps. Resection and retrieval were complete. A 4 mm polyp was found in the rectum. The polyp was sessile. The polyp was removed with a cold snare. Resection and retrieval were complete. Mild sigmoid diverticulosis and small internal hemorrhoids. The colon (entire examined portion) was moderately redundant. The exam was otherwise without abnormality on direct and retroflexion views. Impression: - One 3 mm polyp at the appendiceal orifice, removed with a jumbo cold forceps. Resected and retrieved. - One 4 mm polyp in the rectum, removed with a cold snare. Resected and retrieved. - Mild sigmoid diverticulosis and small internal hemorrhoids. - The colon examination was otherwise normal on direct and retroflexion views. Recommendation: - Repeat colonoscopy in 5 years for surveillance. Riley Valderrama MD Riley VALDERRAMA MD 12/01/2019 3:35:40 PM Electronically signed by Riley VALDERRAMA MD Number of Addenda: 0 Note Initiated On: 12/01/2019 2:53 PM Estimated Blood Loss: Estimated blood loss: none.
[2019-12-01 15:50] VITALS: BP 94/58
== END 2019-12-01 16:24 | disposition home or self-care (01) ==
LOC: M OPP 12:26
PROVIDERS: ATTEND Internal Medicine Gastroenterology
DX: Z12.11 Encounter for screening for malignant neoplasm of colon (principal); Z86.010 Personal history of colon polyps; Z63.5 Disruption of family by separation and divorce; K62.1 Rectal polyp; K64.8 Other hemorrhoids; Q43.8 Other specified congenital malformations of intestine; R13.10 Dysphagia, unspecified; E03.9 Hypothyroidism, unspecified; Z79.899 Other long term (current) drug therapy
CPT/HCPCS: 43235; 45380; 45385; 88305; J3010; U0002

== ENCOUNTER → 2019-12-14 | Outpatient (CLI) | payer MEDICARE, MEDICAID ==
[~2019-12-14] MED LIST changes: +E-Z-PAQUE 96% w/w SUSP 176GM BTL As Ordered ONE; -LIDOCAINE 2% 100MG/5ML SDV (FOR ANES.) As Ordered ONE; -NS 1,000 ML IV ONE; -fentaNYL 100 MCG/2 ML INJECTION (J3010) As Ordered ONE; -propofoL 200 MG/20 ML VIAL As Ordered ONE
--- NOTE | 2019-12-14 17:38 | REP ---
INDICATION: RUQ ABD PAIN WT LOSS ABN FINDING IMAG CT TECHNIQUE: This procedure was performed by Mounika Jackson, [facility], under the direct supervision of Dr. Roldan. Images were reviewed with Dr. Roldan prior to dictation. Liquid barium was administered and the barium column was followed through the small bowel to the level of the terminal ileum. FINDINGS: The private branch exchange installer film shows no organomegaly or pathological masses. The intestinal gas pattern is unremarkable. There is a surgical staple in the right upper quadrant. There is a small hiatal hernia as well as reflux. Small bowel transit time is approximately 120 minutes. During fluoroscopy gentle palpation shows all loops are freely movable and pliable. There is no fixed angulated loops. The small bowel mucosal pattern is normal in course and caliber. There is no transition to suggest a partial small bowel obstruction. Spot filming of the terminal ileum shows it to be unremarkable. IMPRESSION: 1. Hiatal hernia. 2. Gastroesophageal reflux. 3. Unremarkable terminal ileum. 1.1 minutes of fluoroscopy time was utilized for this procedure. Some fluoroscopic images are performed with last image hold technology. These images require no additional radiation. <Electronically signed by Mounika Jackson > 12/14/19 1700 <Electronically signed by Jass Roldan > 12/14/19 [id number]
== END ==
LOC: M RAD 07:52
PROVIDERS: ATTEND Physician Assistant Medical
DX: R10.9 Unspecified abdominal pain (principal); R91.8 Other nonspecific abnormal finding of lung field

== ENCOUNTER → 2020-01-22 | Outpatient (CLI) | payer MEDICARE, MEDICAID ==
[~2020-01-22] MED LIST changes: -E-Z-PAQUE 96% w/w SUSP 176GM BTL As Ordered ONE
[2020-01-22 11:10] LABS: BASO % 0.6 % (0.0-1.0); EOS # 0.1 10^3/uL (0.0-0.5); EOS % 1.8 % (0.0-3.0); HEMATOCRIT 40.2 % (36.0-47.0); HEMOGLOBIN 12.9 g/dl (12.0-15.5); LYMPH # 1.6 10^3/uL (1.5-5.0); LYMPH % 33.2 % (24.0-44.0); MEAN CORPUSCULAR HEMOGLOBIN 31.3 pg (27.0-33.0); MEAN CORPUSCULAR HGB CONC 32.1 g/dl (32.0-36.5); MEAN CORPUSCULAR VOLUME 97.6 fl (80.0-96.0); MONO # 0.4 10^3/uL (0.0-0.8); NEUTROPHILS # 2.7 10^3/uL (1.5-8.5); NEUTROPHILS % 55.2 % (36.0-66.0); PLATELET COUNT, AUTOMATED 188 10^3/uL (150-450); RED BLOOD COUNT 4.12 10^6/uL (4.00-5.40); WHITE BLOOD COUNT 4.9 10^3/uL (4.0-10.0)
[2020-01-22 11:35] LABS: ALBUMIN 3.6 GM/DL (3.2-5.2); ALT/SGPT 30 U/L (12-78); AMYLASE 91 U/L (25-115); BILIRUBIN,TOTAL 0.4 MG/DL (0.2-1.0); BLOOD UREA NITROGEN 20 MG/DL (7-18); CALCIUM LEVEL 9.2 MG/DL (8.8-10.2); CARBON DIOXIDE LEVEL 32 MEQ/L (21-32); CHLORIDE LEVEL 108 MEQ/L (98-107); CREATININE FOR GFR 0.76 MG/DL (0.55-1.30); GLOMERULAR FILTRATION RATE > 60.0 (>45); GLUCOSE, FASTING 105 MG/DL (70-100); LIPASE 203 U/L (73-393); SODIUM LEVEL 142 MEQ/L (136-145); TOTAL PROTEIN 6.2 GM/DL (6.4-8.2)
== END ==
LOC: M LAB 09:31
PROVIDERS: ATTEND Physician Assistant Medical
DX: R10.11 Right upper quadrant pain (principal)

== ENCOUNTER 2020-01-27 13:54 | Emergency (ER) | payer MEDICARE, MEDICAID ==
[~2020-01-27] VITALS: Ht 157.5 cm; Wt 49.4 kg
[2020-01-27 15:56] LABS: BASO % 0.4 % (0.0-1.0); EOS % 0.8 % (0.0-3.0); HEMATOCRIT 42.1 % (36.0-47.0); HEMOGLOBIN 14.3 g/dl (12.0-15.5); LYMPH # 1.6 10^3/uL (1.5-5.0); LYMPH % 30.6 % (24.0-44.0); MEAN CORPUSCULAR HEMOGLOBIN 31.6 pg (27.0-33.0); MEAN CORPUSCULAR VOLUME 93.1 fl (80.0-96.0); MONO # 0.5 10^3/uL (0.0-0.8); MONO % 9.6 % (0.0-5.0); NEUTROPHILS # 3.1 10^3/uL (1.5-8.5); NEUTROPHILS % 58.4 % (36.0-66.0); PLATELET COUNT, AUTOMATED 186 10^3/uL (150-450); RED BLOOD COUNT 4.52 10^6/uL (4.00-5.40); WHITE BLOOD COUNT 5.3 10^3/uL (4.0-10.0)
[2020-01-27 16:22] LABS: ALBUMIN 4.3 GM/DL (3.2-5.2); ALT/SGPT 29 U/L (12-78); BILIRUBIN,DIRECT 0.3 MG/DL (0.0-0.2); BILIRUBIN,TOTAL 1.1 MG/DL (0.2-1.0); BLOOD UREA NITROGEN 23 MG/DL (7-18); CALCIUM LEVEL 9.3 MG/DL (8.8-10.2); CARBON DIOXIDE LEVEL 25 MEQ/L (21-32); CHLORIDE LEVEL 105 MEQ/L (98-107); CREATININE FOR GFR 0.77 MG/DL (0.55-1.30); GLOMERULAR FILTRATION RATE > 60.0 (>45); GLUCOSE, FASTING 70 MG/DL (70-100); LIPASE 134 U/L (73-393); SODIUM LEVEL 139 MEQ/L (136-145); TOTAL PROTEIN 7.2 GM/DL (6.4-8.2)
--- NOTE | 2020-01-27 16:36 | REP ---
INDICATION: Abdominal Pain. COMPARISON: 01/23/2017. TECHNIQUE: PA and lateral chest. FINDINGS: Lung hartman are clear. The cardiac size is normal. The aquilino and mediastinum are unremarkable. There is pectus excavatum, unchanged. There is no free subdiaphragmatic air. IMPRESSION: No acute cardiopulmonary findings. Pectus excavatum, unchanged. No free subdiaphragmatic air. <Electronically signed by Natan Pozo > 01/27/20 [id number]
[2020-01-27 16:37] LABS: AMYLASE 58 U/L (25-115); CK-MB VALUE MASS 2.3 NG/ML (<3.6); CPK CREATINE PHOSPHOKINASE 139 U/L (26-192); MB/CK RELATIVE INDEX 1.65 (< OR =4); TROPONIN I < 0.02 NG/ML (< 0.10)
[2020-01-27] MEDS: GASTROGRAFIN SOLUTION 30ML PO SCH ×2 (17:13→17:44)
[2020-01-27] MEDS ORDERED: NS 1,000 ML IV ONE (17:30)
[2020-01-27] MEDS ORDERED: ISOVUE-370 76% 100ML VIAL As Ordered ONE (18:24)
--- NOTE | 2020-01-27 18:55 | REPVR ---
PROCEDURE INFORMATION: Exam: CT Abdomen And Pelvis With Contrast Exam date and time: 01/27/2020 6:36 PM Age: 69 years old Clinical indication: Abdominal pain; Localized; Right upper quadrant (ruq); Additional info: Ruq pain, chronic, uninentional weight loss TECHNIQUE: Imaging protocol: Computed tomography of the abdomen and pelvis with intravenous contrast. Radiation optimization: All CT scans at this facility use at least one of these dose optimization techniques: automated exposure control; mA and/or kV adjustment per patient size (includes targeted exams where dose is matched to clinical indication); or iterative reconstruction. Contrast material: ISOVUE 370; Contrast volume: 100 ml; Contrast route: INTRAVENOUS (IV); COMPARISON: CT ABD/PEL W/IV ORAL CONTRAS 10/28/2019 3:26 PM FINDINGS: Mediastinal space: A small sliding hiatal hernia is present. Liver: There is a diffuse decrease in hepatic parenchymal density, consistent with steatosis. Gallbladder and bile ducts: There has been a cholecystectomy. Pancreas: Normal. No ductal dilation. Spleen: Normal. No splenomegaly. Adrenal glands: Normal. No mass. Kidneys and ureters: Simple cyst right kidney measures 2.4 cm. No follow-up suggested. Stomach and bowel: Unremarkable. No obstruction. No mucosal thickening. Appendix: No evidence of appendicitis. Intraperitoneal space: Unremarkable. No free air. No significant fluid collection. Vasculature: Unremarkable. No abdominal aortic aneurysm. Lymph nodes: Unremarkable. No enlarged lymph nodes. Urinary bladder: Unremarkable as visualized. Reproductive: Unremarkable as visualized. Bones/joints: Small sclerotic focus in the posterior right iliac bone. Soft tissues: Unremarkable. IMPRESSION: 1. There has been a cholecystectomy. 2. A small sliding hiatal hernia is present. 3. There is a diffuse decrease in hepatic parenchymal density, consistent with steatosis. 4. Simple cyst right kidney measures 2.4 cm. No follow-up suggested. COMMENTS: Consistent with the [employer]'s Incidental Findings Committee white paper (J Am Ledy Radiol 2018): Any incidental renal lesion less than 1 cm or classified as too small to characterize, or any incidental cystic renal lesion characterized as simple-appearing, is likely benign. No follow-up imaging is recommended for these lesions per consensus recommendations based on imaging criteria. Electronically signed by: Bogdan Rogers On 01/27/2020 18:55:09 PM
--- NOTE | 2020-01-27 20:26 | REPVR ---
PROCEDURE INFORMATION: Exam: US Abdomen, Limited; Right Upper Quadrant Exam date and time: 01/27/2020 7:56 PM Age: 69 years old Clinical indication: Abdominal pain; Prior surgery; Surgery date: 6+ months; Surgery type: Tamika 2001; Additional info: Ruq pain, elevated bilirubin levels, S/P cholecystectomy TECHNIQUE: Imaging protocol: US abdomen. Real time ultrasound with image documentation. Limited exam focused on the right upper quadrant. COMPARISON: CT ABD/PEL W/IV ORAL CONTRAS 01/27/2020 6:14 PM FINDINGS: Liver: No evidence of hepatic steatosis on this examination. Gallbladder: There has been a cholecystectomy. Common bile duct: The common bile duct measures 4.5 mm. No mass or choledocholithiasis. No significant intrahepatic biliary dilatation. Pancreas: Visualized pancreas is unremarkable. Right kidney: Right kidney measures 10.7 x 5.5 x 4.1 cm. Simple cyst in the medial upper pole of the right kidney measures 2.4 x 1.8 x 2.2 cm. No follow-up suggested. IMPRESSION: 1. Simple cyst in the medial upper pole of the right kidney measures 2.4 x 1.8 x 2.2 cm. No follow-up suggested. 2. There has been a cholecystectomy. 3. No evidence of hepatic steatosis on this examination. COMMENTS: Consistent with the [place]'s Incidental Findings Committee white paper (J Am Ledy Radiol 2018): Any incidental renal lesion less than 1 cm or classified as too small to characterize, or any incidental cystic renal lesion characterized as simple-appearing, is likely benign. No follow-up imaging is recommended for these lesions per consensus recommendations based on imaging criteria. Electronically signed by: Bogdan Rogers On 01/27/2020 20:25:48 PM
--- NOTE | 2020-01-27 21:01 | ECGEPIP ---
[facility] - ED Test Date: 2020-01-27 Pat Name: SAVANNAH CARBAJAL Department: Room: - Gender: Female [facility] Consultant: VERITO : 1950 Requested By: JEFF Asif PA-C Order Number: [id number] Reading MD: Beena Bustillo Measurements Intervals [place] Rate: 70 P: 64 [place]: 172 QRS: 33 QRSD: 86 T: 34 QT: 398 QTc: 432 Interpretive Statements SINUS RHYTHM POSSIBLE LEFT ATRIAL ENLARGEMENT POSSIBLE RIGHT VENTRICULAR CONDUCTION DELAY SIMILAR 10/28/19 Electronically Signed on 01-27-2020 21:00:52 EST by Beena Bustillo
[2020-01-27] MEDS ORDERED: OMEP40CA97 PO (21:19)
[2020-01-27] MEDS ORDERED: MACR100C43 PO (21:19)
[2020-01-27] MEDS ORDERED: PANT40TA29 PO (21:55)
[2020-01-27] MEDS ORDERED: DICY10CA13 PO (21:55)
[2020-01-27] MEDS ORDERED: GABA-1171 PO (21:55)
[2020-01-27 22:31] VITALS: BP 114/68
== END 2020-01-27 22:32 | disposition home or self-care (01) ==
LOC: M ED 13:54
DX: R10.11 Right upper quadrant pain (principal); K76.0 Fatty (change of) liver, not elsewhere classified; N39.0 Urinary tract infection, site not specified; N28.1 Cyst of kidney, acquired; R19.7 Diarrhea, unspecified; K44.9 Diaphragmatic hernia without obstruction or gangrene; R94.31 Abnormal electrocardiogram [ECG] [EKG]; Q67.6 Pectus excavatum; Z86.718 Personal history of other venous thrombosis and embolism; M79.7 Fibromyalgia; K21.9 Gastro-esophageal reflux disease without esophagitis; M19.90 Unspecified osteoarthritis, unspecified site; E03.9 Hypothyroidism, unspecified; G70.00 Myasthenia gravis without (acute) exacerbation; Z79.899 Other long term (current) drug therapy
CPT/HCPCS: 71046; 74177; 76705; 80048; 80076; 81001; 82150; 82550; 82553; 83690; 84484; 85025; 87086; 93005; 96360; 99284; Q9963; Q9967

== ENCOUNTER → 2020-02-15 | Outpatient (CLI) | payer MEDICARE, MEDICAID ==
[~2020-02-15] MED LIST changes: +DICY10CA13 PO; +ISOVUE-370 76% 100ML VIAL As Ordered ONE; +MACR100C43 PO; +OMEP40CA97 PO
--- NOTE | 2020-02-15 14:55 | REP ---
INDICATION: RIGHT UPPER QUAD PAIN COMPARISON: 01/27/2020, 10/28/2019 TECHNIQUE: Axial contrast-enhanced images of the abdomen using angiographic technique including multiplanar and MIP reformations. 100 cc Isovue 370 intravenous contrast material administered without complication. This CT examination was performed using the following dose reduction techniques: Automated exposure control, adjustment of mA and/or kv according to the patient's size, and use of iterative reconstruction technique. FINDINGS: The abdominal aorta has a somewhat tortuous contour without aneurysm or dissection and measures 2.1 cm maximal diameter. Celiac axis, superior mesenteric artery, renal arteries, inferior mesenteric artery, and visualized portions of the bilateral common iliac arteries are normal in appearance. No atherosclerotic changes are appreciated. Celiac axis and superior mesenteric artery demonstrate normal angulation at their origin. Liver, spleen, pancreas, bilateral adrenal glands and kidneys are essentially normal for arterial phase evaluation. 2.5 cm right renal cyst again noted. Evidence for prior cholecystectomy. Small hiatal hernia at the gastroesophageal junction identified. Remainder of the visualized small and large bowel is grossly unremarkable but limited in evaluation due to lack of intraluminal contrast and paucity of intraperitoneal fat. No free air. No adenopathy. No ascites. Visualized musculoskeletal structures are intact. Lung bases are clear. IMPRESSION: 1. Normal angiographic appearance to the abdominal aorta and branch vessels. 2. Stable 2.5 cm right renal cyst. <Electronically signed by Cabrera Maldonado > 02/15/20 [id number]
== END ==
LOC: M RAD 14:05
PROVIDERS: ATTEND Physician Assistant Medical
DX: N28.1 Cyst of kidney, acquired (principal); R10.11 Right upper quadrant pain
CPT/HCPCS: 74175; Q9967

== ENCOUNTER → 2020-06-07 | Outpatient (CLI) | payer MEDICARE, MEDICAID ==
[~2020-06-07] MED LIST changes: -ISOVUE-370 76% 100ML VIAL As Ordered ONE
[2020-06-07 07:16] LABS: ALT/SGPT 27 U/L (12-78); BLOOD UREA NITROGEN 15 MG/DL (7-18); CALCIUM LEVEL 9.1 MG/DL (8.8-10.2); CARBON DIOXIDE LEVEL 30 MEQ/L (21-32); CHLORIDE LEVEL 106 MEQ/L (98-107); GLOMERULAR FILTRATION RATE > 60.0 (>45); GLUCOSE, FASTING 89 MG/DL (70-100); POTASSIUM SERUM 4.1 MEQ/L (3.5-5.1); SODIUM LEVEL 143 MEQ/L (136-145)
[2020-06-07 07:17] LABS: ALBUMIN 3.8 GM/DL (3.2-5.2); BILIRUBIN,TOTAL 0.6 MG/DL (0.2-1.0); CHOLESTEROL LEVEL 217 MG/DL (<200); CHOLESTEROL RISK RATIO 2.148 (<5); HDL CHOLESTEROL 101 MG/DL (>40); LDL CHOLESTEROL 98 MG/DL (<100); NON-HDL-C 116 MG/DL; TOTAL PROTEIN 6.6 GM/DL (6.4-8.2); TRIGLYCERIDES LEVEL 90 MG/DL (<150)
== END ==
LOC: M LAB 06:07
PROVIDERS: ATTEND Family Medicine
DX: Z13.220 Encounter for screening for lipoid disorders (principal); Z13.1 Encounter for screening for diabetes mellitus; E03.9 Hypothyroidism, unspecified

== ENCOUNTER → 2020-07-01 | Outpatient (CLI) | payer MEDICARE, MEDICAID ==
--- NOTE | 2020-07-01 17:27 | DEXAMM ---
INDICATION: M81.0 AGE RELATED OATEOPOROSIS. COMPARISON: 06/16/2018 as well as other prior exams. TECHNIQUE: Bone density was measured using dual-energy x-ray absorptiometry (DEXA). FINDINGS: AP SPINE L1-L4 BMD 0.884 g/cm2 Young Adult T-Score -2.5 Age Matched Z-Score -0.9. LT FEMUR, TOTAL BMD 0.708 g/cm2 Young Adult T-Score -2.4 Age Matched Z-Score -1.0. LT NECK BMD 0.681 g/cm2 Young Adult T-Score -2.6 Age Matched Z-Score -0.9. RT FEMUR, TOTAL BMD 0.715 g/cm2 Young Adult T-Score -2.3 Age Matched Z-Score -0.9. RT NECK BMD 0.724 g/cm2 Young Adult T-Score -2.3 Age Matched Z-Score -0.6. IMPRESSION: There is low bone density of the spine. There is osteoporosis of the left hip. There is low bone density of the right hip. The density of the spine has decreased 4.3% since the initial exam on 03/06/2012. The density of the spine decreased 2.9% since most recent exam on 06/16/2018. The density of the left hip has decreased 1.5% since initial exam on 03/06/2012. The density of the left hip has decreased 2.1% since most recent exam on 06/16/2018. The density of the right hip has decreased 4.7% since the initial exam on 03/06/2012. The density of the right hip has decreased 2.3% since the most recent exam on 06/16/2018. FOLLOW-UP: Recommendation for the next bone density exam: 2 years. <Electronically signed by Natan Vail > 07/01/20 [id number]
== END ==
LOC: M WHC 07:50
PROVIDERS: ATTEND Family Medicine
DX: M81.0 Age-related osteoporosis without current pathological fracture (principal)

== ENCOUNTER → 2020-10-21 | Outpatient (CLI) | payer MEDICARE, MEDICAID ==
[~2020-10-21] MED LIST changes: +OMEP40CA4 PO; -OMEP40CA97 PO
--- NOTE | 2020-10-21 08:37 | REPMRS ---
Patient History The patient states she has not had a clinical breast exam in over a year. Family history of prostate cancer at age 58 in father, endometrial cancer at age 59 in mother. No Hormone Replacement Therapy Patient states no breast complaints today. Patient has signed MRS History Sheet. Digital Woman Screen Mammo: October 21, 2020 - Exam #: [id number] Bilateral CC and MLO view(s) were taken. Technologist: Edith Spencer, Technologist Prior study comparison: September 14, 2019, bilateral digital woman screen mammo performed at [facility]. September 05, 2018, bilateral digital woman screen mammo performed at [facility]. August 19, 2017, bilateral digital woman screen mammo performed at [facility]. FINDINGS: The breast tissue is heterogeneously dense. This may lower the sensitivity of mammography. The Volpara volumetric breast density category is: C. There is a moderate amount of heterogeneously dense fibroglandular tissue which is fairly symmetric. There is no interval development of dominant mass, architectural distortion, or grouped microcalcification typical of malignancy. There has been no change in the appearance of the mammogram from the prior studies. 3-D tomosynthesis shows no additional findings. Assessment: BI-RADS/ACR category 1 mammogram. Negative Mammogram. Recommendation Routine screening mammogram of both breasts in 1 year (for women over age 40). This patient's [facility] Lifetime Breast Cancer RIsk is estimated at 4.8 %. This mammogram was interpreted with the aid of an FDA-approved computer-aided dectection system. Electronically Signed By: Jass Roldan MD 10/21/20 0836
== END ==
LOC: M WHC 07:47
PROVIDERS: ATTEND Family Medicine
DX: Z12.31 Encounter for screening mammogram for malignant neoplasm of breast (principal)

== ENCOUNTER → 2020-12-01 | Outpatient (CLI) | payer MEDICARE, MEDICAID ==
[2020-12-01 11:15] LABS: BLOOD UREA NITROGEN 17 MG/DL (7-18); CALCIUM LEVEL 9.3 MG/DL (8.8-10.2); CARBON DIOXIDE LEVEL 31 MEQ/L (21-32); CHLORIDE LEVEL 109 MEQ/L (98-107); CREATININE FOR GFR 0.66 MG/DL (0.55-1.30); GLOMERULAR FILTRATION RATE > 60.0 (>45); GLUCOSE, FASTING 83 MG/DL (70-100); MAGNESIUM LEVEL 2.3 MG/DL (1.8-2.4); PHOSPHORUS LEVEL 3.1 MG/DL (2.5-4.9); POTASSIUM SERUM 4.2 MEQ/L (3.5-5.1); SODIUM LEVEL 142 MEQ/L (136-145); THYROID STIMULATING HORMONE 0.055 uIU/ML (0.358-3.740)
[2020-12-01 11:36] LABS: TOTAL 25(OH) VITAMIN D 82.8 NG/ML (30.0-100.0)
== END ==
LOC: M PLALAB 08:03
PROVIDERS: ATTEND Family Medicine
DX: E03.9 Hypothyroidism, unspecified (principal); M81.0 Age-related osteoporosis without current pathological fracture; F41.9 Anxiety disorder, unspecified; F33.1 Major depressive disorder, recurrent, moderate; K21.9 Gastro-esophageal reflux disease without esophagitis; K31.84 Gastroparesis; K58.9 Irritable bowel syndrome, unspecified; G70.00 Myasthenia gravis without (acute) exacerbation; R13.10 Dysphagia, unspecified; Z91.19 Patient's noncompliance with other medical treatment and regimen; M79.7 Fibromyalgia; M25.521 Pain in right elbow; M25.522 Pain in left elbow
CPT/HCPCS: 36415; 80048; 82306; 83735; 84100; 84443; G0463

== ENCOUNTER → 2021-01-31 | Outpatient (CLI) | payer MEDICARE, MEDICAID | LOC: M LAB 06:14 | PROVIDERS: ATTEND Family Medicine | DX: E03.9 Hypothyroidism, unspecified (principal) ==

== ENCOUNTER → 2021-08-01 | Outpatient (CLI) | payer MEDICARE, MEDICAID ==
[~2021-08-01] MED LIST changes: -D31000TA2 PO; +FLUO-96 PO; -FLUO20CA20 PO; +OMEP-173 PO; -OMEP-218 PO; +VITA100093 PO
[2021-08-01 11:16] LABS: ALBUMIN 4.1 GM/DL (3.2-5.2); ALT/SGPT 29 U/L (12-78); BILIRUBIN,TOTAL 0.6 MG/DL (0.2-1.0); BLOOD UREA NITROGEN 16 MG/DL (7-18); CARBON DIOXIDE LEVEL 30 MEQ/L (21-32); CHLORIDE LEVEL 106 MEQ/L (98-107); CHOLESTEROL LEVEL 270 MG/DL (<200); CHOLESTEROL RISK RATIO 2.755 (<5); FREE T4 1.05 NG/DL (0.76-1.46); GLOMERULAR FILTRATION RATE > 60.0 (>39); GLUCOSE, FASTING 84 MG/DL (70-100); HDL CHOLESTEROL 98 MG/DL (>40); LDL CHOLESTEROL 157 MG/DL (<100); NON-HDL-C 172 MG/DL; POTASSIUM SERUM 3.8 MEQ/L (3.5-5.1); SODIUM LEVEL 142 MEQ/L (136-145); TOTAL PROTEIN 7.1 GM/DL (6.4-8.2); TRIGLYCERIDES LEVEL 75 MG/DL (<150)
== END ==
LOC: M PLALAB 08:08
PROVIDERS: ATTEND Physician Assistant
DX: E03.9 Hypothyroidism, unspecified (principal); I72.0 Aneurysm of carotid artery

== ENCOUNTER → 2021-09-13 | Outpatient (CLI) | payer MEDICARE, MEDICAID | LOC: M PLAIMG 12:40 | PROVIDERS: ATTEND Physician Assistant | DX: S09.90XA Unspecified injury of head, initial encounter (principal) ==

== ENCOUNTER → 2022-01-25 | Outpatient (CLI) | payer MEDICARE, MEDICAID ==
[2022-01-25 07:25] LABS: CHOLESTEROL RISK RATIO 2.39 (<5); HDL CHOLESTEROL 84.1 MG/DL (>40); LDL CHOLESTEROL 102.7 MG/DL (<100)
== END ==
LOC: M LAB 06:18
PROVIDERS: ATTEND Physician Assistant
DX: E78.49 Other hyperlipidemia (principal)

== ENCOUNTER → 2022-05-01 | Outpatient (CLI) | payer MEDICARE, MEDICAID ==
[2022-05-01 10:50] LABS: BASO % 0.4 % (0.0-1.0); EOS # 0.2 10^3/uL (0.0-0.5); EOS % 2.9 % (0.0-3.0); HEMATOCRIT 39.7 % (36.0-47.0); HEMOGLOBIN 13.2 g/dl (12.0-15.5); LYMPH # 1.1 10^3/uL (1.5-5.0); LYMPH % 21.4 % (24.0-44.0); MEAN CORPUSCULAR HGB CONC 33.2 g/dl (32.0-36.5); MEAN CORPUSCULAR VOLUME 96.4 fl (80.0-96.0); MONO # 0.6 10^3/uL (0.0-0.8); MONO % 11.4 % (2.0-8.0); NEUTROPHILS # 3.2 10^3/uL (1.5-8.5); NEUTROPHILS % 63.5 % (36.0-66.0); PLATELET COUNT, AUTOMATED 205 10^3/uL (150-450); RED BLOOD COUNT 4.12 10^6/uL (4.00-5.40); WHITE BLOOD COUNT 5.1 10^3/uL (4.0-10.0)
[2022-05-01 11:39] LABS: ALBUMIN 3.7 G/DL (3.2-5.2); ALKALINE PHOSPHATASE 58 U/L (46-116); ALT/SGPT 25 U/L (7.0-40); AST/SGOT 28 U/L (<34); BILIRUBIN,TOTAL 0.5 MG/DL (0.3-1.2); BLOOD UREA NITROGEN 28 MG/DL (9-23); CALCIUM LEVEL 9.4 MG/DL (8.3-10.6); CARBON DIOXIDE LEVEL 31 MMOL/L (20-31); CHLORIDE LEVEL 105 MMOL/L (98-107); CREATININE FOR GFR 0.79 MG/DL (0.55-1.30); FREE T4 1.15 NG/DL (0.89-1.76); GLOMERULAR FILTRATION RATE > 60.0 (>39); GLUCOSE, FASTING 78 MG/DL (74-106); POTASSIUM SERUM 3.6 MMOL/L (3.5-5.1); SODIUM LEVEL 142 MMOL/L (136-145); THYROID STIMULATING HORMONE 2.646 uIU/ML (0.55-4.78)
[2022-05-01 12:41] LABS: TOTAL PROTEIN 6.1 G/DL (5.7-8.2)
== END ==
LOC: M PLALAB 08:25
PROVIDERS: ATTEND Physician Assistant
DX: E03.9 Hypothyroidism, unspecified (principal); M81.0 Age-related osteoporosis without current pathological fracture

== ENCOUNTER → 2022-07-12 | Outpatient (CLI) | payer MEDICARE, MEDICAID ==
[2022-07-12 11:54] LABS: BLOOD UREA NITROGEN 18 MG/DL (9-23); CREATININE FOR GFR 0.79 MG/DL (0.55-1.30); GLOMERULAR FILTRATION RATE > 60.0 (>39)
== END ==
LOC: M PLALAB 08:14
PROVIDERS: ATTEND Psychiatry & Neurology Neurology
DX: I10 Essential (primary) hypertension (principal)

== ENCOUNTER → 2022-07-12 | Outpatient (CLI) | payer MEDICARE, MEDICAID | LOC: M PLAIMG 07:15 | PROVIDERS: ATTEND Physician Assistant | DX: M79.675 Pain in left toe(s) (principal); Z98.890 Other specified postprocedural states; I10 Essential (primary) hypertension ==

== ENCOUNTER → 2023-01-29 | Outpatient (REF) | payer MEDICARE, MEDICAID ==
[~2023-01-29] MED LIST changes: +DICY-61 PO; -DICY10CA13 PO; +METO10TA2 PO
== END ==
LOC: M SFHCPLAZ 11:12
PROVIDERS: ATTEND Student in an Organized Health Care Education/Training Program
DX: K52.9 Noninfective gastroenteritis and colitis, unspecified (principal); R19.7 Diarrhea, unspecified; A04.9 Bacterial intestinal infection, unspecified

== ENCOUNTER → 2023-02-28 | Outpatient (CLI) | payer MEDICARE, MEDICAID ==
[2023-02-28 13:43] LABS: BASO % 0.5 % (0.0-1.0); EOS % 0.5 % (0.0-3.0); HEMATOCRIT 40.8 % (36.0-47.0); HEMOGLOBIN 13.5 g/dl (12.0-15.5); LYMPH # 1.4 10^3/uL (1.5-5.0); LYMPH % 20.3 % (24.0-44.0); MEAN CORPUSCULAR HGB CONC 33.1 g/dl (32.0-36.5); MEAN CORPUSCULAR VOLUME 96.7 fl (80.0-96.0); MONO # 0.7 10^3/uL (0.0-0.8); MONO % 9.9 % (2.0-8.0); NEUTROPHILS # 4.6 10^3/uL (1.5-8.5); NEUTROPHILS % 68.6 % (36.0-66.0); PLATELET COUNT, AUTOMATED 235 10^3/uL (150-450); RED BLOOD COUNT 4.22 10^6/uL (4.00-5.40); WHITE BLOOD COUNT 6.6 10^3/uL (4.0-10.0)
== END ==
LOC: M PLALAB 11:17
PROVIDERS: ATTEND Family Medicine
DX: R63.6 Underweight (principal)

== ENCOUNTER → 2023-03-14 | Outpatient (CLI) | payer MEDICARE, MEDICAID | LOC: M WHC 12:40 | PROVIDERS: ATTEND Family Medicine | DX: Z12.31 Encounter for screening mammogram for malignant neoplasm of breast (principal) ==

== ENCOUNTER → 2023-06-18 | Outpatient (CLI) | payer MEDICARE, MEDICAID ==
[2023-06-18 17:22] LABS: FREE T4 0.97 NG/DL (0.89-1.76)
[2023-06-18 17:23] LABS: ALBUMIN 3.4 G/DL (3.2-5.2); ALKALINE PHOSPHATASE 54 U/L (46-116); ALT/SGPT 40 U/L (7.0-40); AST/SGOT 30 U/L (<34); BILIRUBIN,TOTAL 0.5 MG/DL (0.3-1.2); BLOOD UREA NITROGEN 20 MG/DL (9-23); CALCIUM LEVEL 9.3 MG/DL (8.3-10.6); CARBON DIOXIDE LEVEL 30 MMOL/L (20-31); CHLORIDE LEVEL 107 MMOL/L (98-107); CREATININE FOR GFR 0.78 MG/DL (0.55-1.30); GLOMERULAR FILTRATION RATE > 60.0 (>39); GLUCOSE, FASTING 79 MG/DL (74-106); POTASSIUM SERUM 4.5 MMOL/L (3.5-5.1); SODIUM LEVEL 143 MMOL/L (136-145)
[2023-06-18 17:26] LABS: THYROID STIMULATING HORMONE 1.805 uIU/ML (0.55-4.78)
== END ==
LOC: M PLALAB 14:36
PROVIDERS: ATTEND Family Medicine
DX: M81.0 Age-related osteoporosis without current pathological fracture (principal); E03.9 Hypothyroidism, unspecified

== ENCOUNTER → 2023-07-01 | Outpatient (REF) | payer MEDICARE, MEDICAID ==
[~2023-07-01] MED LIST changes: +FLUO20CA22; +HYDR-643
[2023-07-06 12:08] LABS: H PYLORI STOOL ANTIGEN Negative (Negative); PANCREATIC ELASTASE STOOL >500 (>200)
== END ==
LOC: M SFHCPLAZ 09:49
PROVIDERS: ATTEND Physician Assistant
DX: R19.5 Other fecal abnormalities (principal); R10.11 Right upper quadrant pain; R19.7 Diarrhea, unspecified

== ENCOUNTER 2023-07-02 03:11 | Emergency (ER) | payer MEDICARE, MEDICAID ==
[~2023-07-02] VITALS: Ht 154.9 cm; Wt 45.1 kg
[~2023-07-02 03:11] MED LIST changes: -FLUO20CA22; -HYDR-643
[2023-07-02] MEDS ORDERED: HYDR-643 (03:34)
[2023-07-02] MEDS ORDERED: FLUO20CA22 (03:34)
[2023-07-02 03:38] LABS: BASO % 0.5 % (0.0-1.0); EOS % 0.7 % (0.0-3.0); HEMATOCRIT 38.2 % (36.0-47.0); HEMOGLOBIN 13.2 g/dl (12.0-15.5); LYMPH # 1.2 10^3/uL (1.5-5.0); MEAN CORPUSCULAR HEMOGLOBIN 32.8 pg (27.0-33.0); MEAN CORPUSCULAR HGB CONC 34.6 g/dl (32.0-36.5); MEAN CORPUSCULAR VOLUME 94.8 fl (80.0-96.0); MONO # 0.4 10^3/uL (0.0-0.8); MONO % 9.9 % (2.0-8.0); NEUTROPHILS # 2.4 10^3/uL (1.5-8.5); NEUTROPHILS % 59.9 % (36.0-66.0); PLATELET COUNT, AUTOMATED 164 10^3/uL (150-450); RED BLOOD COUNT 4.03 10^6/uL (4.00-5.40)
[2023-07-02 04:07] LABS: LIPASE 89 U/L (12-53)
[2023-07-02 04:09] LABS: ALBUMIN 3.5 G/DL (3.2-5.2); ALKALINE PHOSPHATASE 52 U/L (46-116); ALT/SGPT 40 U/L (7.0-40); AST/SGOT 31 U/L (<34); BILIRUBIN,DIRECT 0.2 MG/DL (<0.4); BILIRUBIN,TOTAL 0.5 MG/DL (0.3-1.2); BLOOD UREA NITROGEN 25 MG/DL (9-23); CALCIUM LEVEL 8.6 MG/DL (8.3-10.6); CARBON DIOXIDE LEVEL 29 MMOL/L (20-31); CHLORIDE LEVEL 108 MMOL/L (98-107); CREATININE FOR GFR 0.81 MG/DL (0.55-1.30); GLOMERULAR FILTRATION RATE > 60.0 (>39); GLUCOSE, FASTING 94 MG/DL (74-106); POTASSIUM SERUM 3.6 MMOL/L (3.5-5.1); SODIUM LEVEL 143 MMOL/L (136-145); TOTAL PROTEIN 5.9 G/DL (5.7-8.2)
[2023-07-02 06:30] VITALS: BP 107/60; TEMP 98; O2SAT 100
[2023-07-02] MEDS ORDERED: ISOVUE-370 76% 100ML VIAL As Ordered ONE (06:42)
[2023-07-02] MEDS: KETOROLAC 30 MG/ML 1ML VIAL IV ONE (06:54)
[2023-07-02] MEDS: NS 1,000 ML IV ONE (06:54)
[2023-07-02] MEDS: ONDANSETRON 4MG 2ML VIAL IV ONE (06:54)
== END 2023-07-02 08:55 | disposition home or self-care (01) ==
LOC: M ED 03:11
DX: A08.11 Acute gastroenteropathy due to Norwalk agent (principal); F32.A Depression, unspecified; K21.9 Gastro-esophageal reflux disease without esophagitis; Z79.899 Other long term (current) drug therapy; Z79.1 Long term (current) use of non-steroidal anti-inflammatories (NSAID)
CPT/HCPCS: 74177; 80053; 80076; 81001; 83690; 85025; 87086; 96361; 96374; 99284; J1885; J2405; Q9967

== ENCOUNTER → 2023-07-18 | Outpatient (REF) | payer MEDICARE, MEDICAID ==
[~2023-07-18] MED LIST changes: +FLUO20CA22; +HYDR-643
== END ==
LOC: M SFHCPLAZ 12:24
PROVIDERS: ATTEND Family Medicine
DX: J02.9 Acute pharyngitis, unspecified (principal)

== ENCOUNTER → 2023-08-06 | Outpatient (CLI) | payer MEDICARE, MEDICAID ==
[~2023-08-06] MED LIST changes: +FLUO-365; -FLUO20CA22
[2023-08-06 14:06] LABS: BASO % 0.4 % (0.0-1.0); EOS % 0.2 % (0.0-3.0); HEMOGLOBIN 13.9 g/dl (12.0-15.5); LYMPH # 1.1 10^3/uL (1.5-5.0); LYMPH % 20.1 % (24.0-44.0); MEAN CORPUSCULAR HEMOGLOBIN 32.3 pg (27.0-33.0); MEAN CORPUSCULAR HGB CONC 33.9 g/dl (32.0-36.5); MEAN CORPUSCULAR VOLUME 95.1 fl (80.0-96.0); MONO # 0.5 10^3/uL (0.0-0.8); MONO % 8.2 % (2.0-8.0); NEUTROPHILS # 3.9 10^3/uL (1.5-8.5); NEUTROPHILS % 70.9 % (36.0-66.0); PLATELET COUNT, AUTOMATED 190 10^3/uL (150-450); RED BLOOD COUNT 4.31 10^6/uL (4.00-5.40); WHITE BLOOD COUNT 5.5 10^3/uL (4.0-10.0)
[2023-08-06 14:11] LABS: ERYTHROCYTE SEDIMENTATION RATE 11 mm/hr (0-30)
== END ==
LOC: M PLALAB 11:06
PROVIDERS: ATTEND Family Medicine
DX: R63.4 Abnormal weight loss (principal)

== ENCOUNTER → 2023-09-30 | Outpatient (CLI) | payer MEDICARE, MEDICAID | LOC: M RAD 10:22 | PROVIDERS: ATTEND Family Medicine | DX: R05.3 Chronic cough (principal) ==

== ENCOUNTER 2023-10-21 10:53 | Emergency (ER) | payer MEDICARE, MEDICAID ==
[~2023-10-21] VITALS: Ht 157.5 cm; Wt 41.7 kg
[2023-10-21] MEDS: NS 1,000 ML IV ONE (12:26)
[2023-10-21 12:30] LABS: BASO % 0.5 % (0.0-1.0); EOS % 0.5 % (0.0-3.0); HEMATOCRIT 38.7 % (36.0-47.0); HEMOGLOBIN 13.1 g/dl (12.0-15.5); LYMPH % 27.4 % (24.0-44.0); MEAN CORPUSCULAR HEMOGLOBIN 32.2 pg (27.0-33.0); MEAN CORPUSCULAR HGB CONC 33.9 g/dl (32.0-36.5); MEAN CORPUSCULAR VOLUME 95.1 fl (80.0-96.0); MONO # 0.5 10^3/uL (0.0-0.8); NEUTROPHILS # 2.1 10^3/uL (1.5-8.5); NEUTROPHILS % 58.3 % (36.0-66.0); PLATELET COUNT, AUTOMATED 170 10^3/uL (150-450); RED BLOOD COUNT 4.07 10^6/uL (4.00-5.40); WHITE BLOOD COUNT 3.7 10^3/uL (4.0-10.0)
[2023-10-21] MEDS ORDERED: ISOVUE-370 76% 100ML VIAL As Ordered ONE (12:34)
[2023-10-21 13:03] LABS: ALBUMIN 3.4 G/DL (3.2-5.2); BILIRUBIN,DIRECT 0.1 MG/DL (<0.4); BILIRUBIN,TOTAL 0.4 MG/DL (0.3-1.2); TOTAL PROTEIN 5.7 G/DL (5.7-8.2)
[2023-10-21] MEDS: DEXTROSE 50% 50ML SYRINGE IV STA (13:16)
[2023-10-21] MEDS ORDERED: LOPE-39 PO (15:21)
[2023-10-21] MEDS ORDERED: DICY-61 PO (15:21)
[2023-10-21 15:25] VITALS: BP 113/72; TEMP 97.1; O2SAT 99
== END 2023-10-21 15:42 | disposition home or self-care (01) ==
LOC: M ED 10:53
DX: K58.9 Irritable bowel syndrome, unspecified (principal); R19.7 Diarrhea, unspecified; E16.2 Hypoglycemia, unspecified; K57.90 Diverticulosis of intestine, part unspecified, without perforation or abscess without bleeding; K21.9 Gastro-esophageal reflux disease without esophagitis; M85.80 Other specified disorders of bone density and structure, unspecified site; F41.9 Anxiety disorder, unspecified; Z90.89 Acquired absence of other organs; Z79.899 Other long term (current) drug therapy
CPT/HCPCS: 74177; 80047; 80076; 81001; 83605; 83690; 85025; 87086; 96361; 96374; 99284; Q9967

== ENCOUNTER → 2024-05-19 | Outpatient (CLI) | payer MEDICARE, MEDICAID ==
[~2024-05-19] MED LIST changes: +LOPE-39 PO
== END ==
LOC: M WHC 12:44
PROVIDERS: ATTEND Family Medicine
DX: Z12.31 Encounter for screening mammogram for malignant neoplasm of breast (principal)

== ENCOUNTER → 2024-09-15 | Outpatient (CLI) | payer MEDICARE, MEDICAID ==
[2024-09-15 15:41] LABS: ALT/SGPT 32.0 U/L (7.0-40); AST/SGOT 28.0 U/L (<34); CALCIUM LEVEL 8.9 MG/DL (8.3-10.6); CARBON DIOXIDE LEVEL 33.0 MMOL/L (20-31); CHLORIDE LEVEL 105.0 MMOL/L (98-107); CHOLESTEROL LEVEL 210.0 MG/DL (<200); CHOLESTEROL RISK RATIO 2.51 (<5); CREATININE FOR GFR 0.87 MG/DL (0.55-1.30); GLOMERULAR FILTRATION RATE 70.3 (>39); LDL CHOLESTEROL 109.7 MG/DL (<100); NON-HDL-C 126.5 MG/DL; POTASSIUM SERUM 4.2 MMOL/L (3.5-5.1); SODIUM LEVEL 144.0 MMOL/L (136-145); TRIGLYCERIDES LEVEL 84.0 MG/DL (<150)
[2024-09-15 15:45] LABS: TOTAL 25(OH) VITAMIN D 81.2 NG/ML (20.0-100.0)
== END ==
LOC: M PLALAB 12:33
PROVIDERS: ATTEND Family Medicine
DX: M81.0 Age-related osteoporosis without current pathological fracture (principal); Z79.899 Other long term (current) drug therapy

== ENCOUNTER → 2024-11-04 | Outpatient (CLI) | payer MEDICARE, MEDICAID ==
[2024-11-04 13:20] LABS: BASO # 0.0 10^3/uL (0.0-0.2); BASO % 0.4 % (0.0-1.0); EOS # 0.1 10^3/uL (0.0-0.5); EOS % 1.2 % (0.0-3.0); LYMPH # 1.3 10^3/uL (1.5-5.0); LYMPH % 25.8 % (24.0-44.0); MONO # 0.5 10^3/uL (0.0-0.8); MONO % 10.6 % (2.0-8.0); NEUTROPHILS # 3.1 10^3/uL (1.5-8.5); NEUTROPHILS % 61.8 % (36.0-66.0); PLATELET COUNT, AUTOMATED 195 10^3/uL (150-450)
[2024-11-04 13:57] LABS: ALT/SGPT 27.0 U/L (7.0-40); AST/SGOT 27.0 U/L (<34); CALCIUM LEVEL 9.2 MG/DL (8.3-10.6); CARBON DIOXIDE LEVEL 31.0 MMOL/L (20-31); CHLORIDE LEVEL 106.0 MMOL/L (98-107); CHOLESTEROL LEVEL 223.0 MG/DL (<200); CHOLESTEROL RISK RATIO 2.53 (<5); CREATININE FOR GFR 0.89 MG/DL (0.55-1.30); GLOMERULAR FILTRATION RATE 68.4 (>39); LDL CHOLESTEROL 116.4 MG/DL (<100); NON-HDL-C 135.2 MG/DL; POTASSIUM SERUM 4.2 MMOL/L (3.5-5.1); SODIUM LEVEL 140.0 MMOL/L (136-145); TRIGLYCERIDES LEVEL 94.0 MG/DL (<150)
[2024-11-04 13:59] LABS: TOTAL 25(OH) VITAMIN D 69.8 NG/ML (20.0-100.0)
== END ==
LOC: M PLALAB 11:10
PROVIDERS: ATTEND Family Medicine
DX: Z00.00 Encounter for general adult medical examination without abnormal findings (principal); E03.9 Hypothyroidism, unspecified; R63.6 Underweight; M81.0 Age-related osteoporosis without current pathological fracture

== ENCOUNTER 2025-02-07 09:00 | Emergency (ER) | payer MEDICARE, MEDICAID ==
[~2025-02-07] VITALS: Ht 157.5 cm; Wt 49.8 kg
[~2025-02-07 09:00] MED LIST changes: +BUSP10TA PO; +FLUO40CA PO; +HYDR-643 PO
[2025-02-07] MEDS ORDERED: NORT10CA2 PO (09:15)
[2025-02-07 10:36] VITALS: BP 110/72; TEMP 98.3; O2SAT 99
[2025-02-07 10:43] LABS: BASO # 0.0 10^3/uL (0.0-0.2); BASO % 0.2 % (0.0-1.0); EOS # 0.1 10^3/uL (0.0-0.5); EOS % 1.2 % (0.0-3.0); LYMPH # 0.3 10^3/uL (1.5-5.0); LYMPH % 6.1 % (24.0-44.0); MONO # 0.4 10^3/uL (0.0-0.8); MONO % 9.3 % (2.0-8.0); NEUTROPHILS # 3.4 10^3/uL (1.5-8.5); NEUTROPHILS % 82.7 % (36.0-66.0); PLATELET COUNT, AUTOMATED 159 10^3/uL (150-450)
[2025-02-07] MEDS ORDERED: ISOVUE-370 76% 100 ML VIAL As Ordered ONE (10:54)
[2025-02-07 11:15] LABS: INR 0.98
[2025-02-07] MEDS: ACETAMINOPHEN *IV* 1,000 MG in IV 1 EA IV ONE (11:21)
[2025-02-07] MEDS: KETOROLAC 30 MG/ML 1 ML VIAL IV ONE (12:33)
[2025-02-07 16:01] VITALS: O2SAT 98
[2025-02-07 16:03] VITALS: BP 106/64; TEMP 98.2
== END 2025-02-07 16:25 | disposition home or self-care (01) ==
LOC: M ED 09:00
DX: R51.9 Headache, unspecified (principal); I45.10 Unspecified right bundle-branch block; I51.7 Cardiomegaly; I72.0 Aneurysm of carotid artery; I67.9 Cerebrovascular disease, unspecified; K21.9 Gastro-esophageal reflux disease without esophagitis; F41.9 Anxiety disorder, unspecified; G70.00 Myasthenia gravis without (acute) exacerbation; Z79.899 Other long term (current) drug therapy
CPT/HCPCS: 70450; 70496; 70498; 71045; 80047; 85025; 85610; 85652; 85730; 86140; 93005; 93041; 94760; 96365; 96366; 96375; 99285; J0134; J1885; J2765; J3010; Q9967

== ENCOUNTER 2025-02-10 16:13 | Emergency (ER) | payer MEDICARE, MEDICAID ==
[~2025-02-10] VITALS: Ht 157.5 cm; Wt 47.6 kg
[~2025-02-10 16:13] MED LIST changes: +NORT10CA2 PO
[2025-02-10 16:17] VITALS: TEMP 98
[2025-02-10 17:07] LABS: BASO # 0.0 10^3/uL (0.0-0.2); BASO % 0.1 % (0.0-1.0); EOS # 0.0 10^3/uL (0.0-0.5); EOS % 0.0 % (0.0-3.0); LYMPH # 0.4 10^3/uL (1.5-5.0); LYMPH % 6.2 % (24.0-44.0); MONO # 0.8 10^3/uL (0.0-0.8); MONO % 11.1 % (2.0-8.0); NEUTROPHILS # 5.9 10^3/uL (1.5-8.5); NEUTROPHILS % 82.3 % (36.0-66.0); PLATELET COUNT, AUTOMATED 157 10^3/uL (150-450)
[2025-02-10 17:25] LABS: ALT/SGPT 99 U/L (7.0-40); AST/SGOT 112 U/L (<34); CALCIUM LEVEL 8.3 MG/DL (8.3-10.6); CARBON DIOXIDE LEVEL 26 MMOL/L (20-31); CHLORIDE LEVEL 102 MMOL/L (98-107); CREATININE FOR GFR 1.10 MG/DL (0.55-1.30); GLOMERULAR FILTRATION RATE 53.1 (>39); POTASSIUM SERUM 4.1 MMOL/L (3.5-5.1); SODIUM LEVEL 138 MMOL/L (136-145)
[2025-02-10] MEDS ORDERED: OSEL75CA PO (17:50)
[2025-02-10] MEDS: OSELTAMIVIR PHOSPHATE 75 MG CAP PO ONE (17:50)
[2025-02-10 18:00] VITALS: BP 107/67; O2SAT 93
[2025-02-10] MEDS ORDERED: HOME MED LIST COMPLETE! XX SCH (18:10)
== END 2025-02-10 18:27 | disposition home or self-care (01) ==
LOC: M ED 16:13
DX: J09.X2 Influenza due to identified novel influenza A virus with other respiratory manifestations (principal); I45.10 Unspecified right bundle-branch block; K21.9 Gastro-esophageal reflux disease without esophagitis; F41.9 Anxiety disorder, unspecified; F32.A Depression, unspecified; M79.7 Fibromyalgia; Z86.79 Personal history of other diseases of the circulatory system; Z79.899 Other long term (current) drug therapy